=== PATIENT | male | born 1930 | race Caucasian/White ===

== ENCOUNTER 2017-12-21 11:52 | Inpatient (IN) | payer OTHER, MEDICARE ==
[~2017-12-21] VITALS: Ht 167.6 cm; Wt 72.6 kg
--- NOTE | 2017-12-21 11:53 | ED MVC/FALL/TRAUMA COMPLAINT ---
History of Present Illness General Chief Complaint: General Adult Stated Complaint: HIP PAIN Source: patient Exam Limitations: no limitations Allergies Coded Allergies: phenytoin (UNKNOWN 02/08/16) tetracycline (UNKNOWN 02/08/16) Triage Nurses Notes Reviewed? yes Onset: Abrupt Duration: constant Timing: single episode today Severity: severe Severity Numbers: 7 HPI: Patient is a 87-year-old male with a past medical history of anxiety, hypertension, iron deficiency anemia, PROSTATE CANCER, depression, right iliac artery aneurysm repair, left bimalleolar fracture with ORIF left acetabular fracture who presents emergency room seen at approximately 9 AM patient was walking outside of his residence he fell slipped on ice in his driveway EMS arrived on scene patient refused EMS transfer to emergency room however he states that he had significant inability to ambulate and weight-bear due to pain localized to left hip upper leg and left ankle. Patient states that bystanders helped patient to his residency and due to persistent pain EMS was called again to his residence for transfer to [facility] emergency room Patient denies any preceding episode of lightheaded sensation or dizziness denies any head strike neck pain back pain chest pain abdominal pain or upper extremity pain. Patient is unable to move left leg (Dionisio Oliva) Vital Signs & Intake/Output Vital Signs & Intake/Output Vital Signs Date Time Temp Pulse Resp B/P B/P Pulse O2 O2 Flow FiO2 Mean Ox Delivery Rate 12/21 1444 Room Air Room Air 12/21 1443 96.5 68 15 159/71 95 Room Air Room Air 12/21 1205 96.7 67 15 150/72 96 Room Air Room Air Reconcile Medications Clonazepam 0.5 MG TABLET 1 TAB PO BID ANXIETY (Reported) Ferrous Sulfate 325 MG (65 MG IRON) TABLET 1 TAB PO TID SUPPLEMENT (Reported) Folic Acid 1 MG TABLET 1 TAB PO DAILY SUPPLEMENT (Reported) Furosemide 20 MG TABLET 1 TAB PO BID DIURETIC (Reported) Mirtazapine 30 MG TABLET 1 TAB PO QPM UNKNOWN (Reported) Tamsulosin HCl 0.4 MG CAP.ER.24H 1 CAP PO DAILY (Reported) Ursodiol 300 MG CAPSULE 2 CAP PO BID UNKNOWN (Reported) (Waylon RICHTER,Vincent Garza) Past History Travel History Traveled to [place] past 21 day No Medical History Any Pertinent Medical History? see below for history Cardiovascular: hypertension Psychiatric: anxiety, depression Influenza Vaccine: 08/13/09 Surgical History Surgical History: non-contributory Psychosocial History Who do you live with Patient/Self Services at Home NONE What is your primary language Sinhala Family History Hx Contributory? No (Dionisio Oliva) Review of Systems Review of Systems Constitutional: Reports: no symptoms. Eyes: Reports: no symptoms. Ears, Nose, Throat, Mouth: Reports: no symptoms. Respiratory: Reports: no symptoms. Cardiovascular: Reports: no symptoms. Gastrointestinal/Abdominal: Reports: no symptoms. Genitourinary: Reports: no symptoms. Musculoskeletal: Reports: see HPI, joint pain, joint swelling. Skin: Reports: no symptoms. Neurological/Psychological: Reports: no symptoms. All Other Systems: Reviewed and Negative (Dionisio Oliva) Physical Exam Physical Exam General Appearance: mild distress Head: atraumatic Eyes: Bilateral: normal appearance. Ears, Nose, Throat, Mouth: hearing grossly normal, moist mucous membrane Neck: normal inspection, no midline tenderness Respiratory: no respiratory distress Cardiovascular: regular rate/rhythm Gastrointestinal: normal bowel sounds, soft, non-tender Neurologic/Psych: no motor/sensory deficits, awake, normal gait Skin: intact, normal color, warm/dry Comments: Left hip noted generalized point tenderness inability to straight leg raise Left femur lateral generalized point tenderness noted Left knee nontender Left ankle generalized point tenderness noted Left foot normal inspection nontender Left lower extremity dermatomes intact pedal pulse +2 capillary refill less than 2 seconds Core Measures ACS in differential dx? No CVA/TIA Diagnosis No Sepsis Present: No Sepsis Focused Exam Completed? No (Dionisio Oliva) Progress Differential Diagnosis: abd injury, C/T/L spine injury, ext injury, ICH, pelvis injury, pnemothorax, spinal cord injury Plan of Care: Orders Procedure Date/time Status Nothing by Mouth 12/21 D Active Pathway - chart 12/21 1520 Active House Staff 12/21 1520 Active Code Status 12/21 1520 Active Patient Data 12/21 1449 Active ED Holding Orders 12/21 1444 Active Admit to inpatient 12/21 1444 Active Vital Signs 12/21 1444 Active Code Status 12/21 1444 Complete Intake & Output 12/21 1317 Active PARTIAL THROMBOPLASTIN TIME 12/21 1155 Complete PROTHROMBIN TIME 12/21 1155 Complete COMPREHENSIVE METABOLIC PANEL 12/21 1155 Complete CREATINE PHOSPHOKINASE 12/21 1155 Complete CBC WITHOUT DIFFERENTIAL 12/21 1155 Complete EKG 12/21 1155 Active TYPE & SCREEN (NOT X-MATCH) 12/21 1155 Complete VTE Mechanical Prophylaxis 12/21 UNK Active Laboratory Tests 12/21/17 1313: Anion Gap 15, Estimated GFR 44 L, BUN/Creatinine Ratio 18.7, Glucose 103 H, Calcium 9.5, Total Bilirubin 0.7, AST 26, ALT 19 L, Alkaline Phosphatase 87, Creatine Kinase 180 H, Total Protein 8.5 H, Albumin 4.5, Globulin 4.0, Albumin /Globulin Ratio 1.1, PT 11.7, INR 1.12, APTT 30, CBC w Diff NO MAN DIFF REQ, RBC 4.46 L, MCV 88.9, MCH 29.0, MCHC 32.7 L, RDW 15.3 H, MPV 8.3, Gran % 88.0 H, Lymphocytes % 6.1 L, Monocytes % 5.6, Eosinophils % 0.1, Basophils % 0.2, Absolute Granulocytes 10.5 H, Absolute Lymphocytes 0.7 L, Absolute Monocytes 0.7 H, Absolute Eosinophils 0, Absolute Basophils 0 Patient understood examination has concerns of fracture to left lower extremity x-rays are obtained patient was given pain medications patient was neurovascularly intact left lower extremity denies any other locations of pain X-rays were resulted showing concerns of left intertrochanteric fracture reviewed x-rays results with family members and patient patient had improvement of his pain and declines pain medications again when offered Discussed patient with Dr. WARREN who will evaluate patient and possible perform surgical intervention however he needs cardiac clearance and medicine admission Dr. Connors discussed admission with hospitalist Diagnostic Imaging: Viewed by Me: Radiology Read. Radiology Impression: acute abnormality, fracture CXR Impression: no acute abnormality, no infiltrates Initial ED EKG: normal p-waves, normal QRS complex, normal sinus rhythm, 79 BPM, NSR Comments: PATIENT: CLARK MOONEY PRESENT AGE: 87 PATIENT ACCOUNT NO: [id number] : 31 LOCATION: [facility] ORDERING PHYSICIAN: Dionisio GIRON SERVICE DATE: 12/21/17-1199 EXAM TYPE: RAD - XRY-ANKLE 3 OR MORE VIEWS L; XRY-AP PELVIS; XRY-FEMUR, LEFT 2 VIEWS; XRY-HIP 2-3 VIEWS, LEFT; [id number], LEFT EXAMINATION: XR PELVIS XR LEFT HIP XR LEFT FEMUR XR LEFT TIBIA AND FIBULA XR LEFT ANKLE CLINICAL INFORMATION: Status post fall with left pelvic pain COMPARISON: CT abdomen and pelvis from 09/11/2015 TECHNIQUE: Single AP view of the pelvis 2 views of the left hip; lateral view of the hip is limited due to patient positioning 2 views of the left femur 2 views of the left tibia and fibula 3 views of the left ankle FINDINGS: Pelvis and left hip: There are severe degenerative changes of the left hip with marked joint space narrowing, [id number] contact of the femoral head and acetabulum, and subchondral sclerosis and cyst formation. There is cortical discontinuity and lucency projecting over the intertrochanteric region concerning for fracture. No evidence of dislocation. The right hip is unremarkable. The left acetabulum appears dysplastic. Healed left superior and inferior pubic rami fractures are better seen on the prior CT. The sacrum is partly obscured by overlying bowel contents. The bony pelvis otherwise appears intact. Degenerative disc disease at L5-S1. Right iliac vascular stent graft and internal iliac vascular occlusion device and prostate brachytherapy seeds are again seen. Left femur: Suspected intertrochanteric fracture as above. Remainder of the femur appears intact. Left tibia and fibula: No evidence of acute fracture. Degenerative changes noted at the knee. Left ankle: Postsurgical changes of internal fixation for bimalleolar fractures. Surgical hardware appears intact. No evidence of superimposed acute osseous abnormality. Alignment appears anatomic. IMPRESSION: Findings suspicious for intertrochanteric fracture of the left proximal femur, although evaluation is limited due to severe degenerative changes of the left hip. This could be confirmed with cross-sectional imaging as clinically indicated. The remainder of the bony pelvis, left femur, tibia and fibula, and ankle appears intact. Incidental findings as noted above. DICTATED BY: Fátima Martinez MD DATE/TIME DICTATED:12/21/171317 CLASSIFICATION OFFICER:VIJI PATIENT: CLARK MOONEY PRESENT AGE: 87 PATIENT ACCOUNT NO: [id number] : 31 LOCATION: [facility] ORDERING PHYSICIAN: Dionisio GIRON SERVICE DATE: 12/21/175013 EXAM TYPE: RAD - XRY-CHEST XRAY, TWO VIEWS EXAMINATION: CHEST CLINICAL INFORMATION: Fall. Suspect hip fracture. COMPARISON: Left rib films dated 07/25/2009. Chest x-ray dated 07/25/2009. TECHNIQUE: 2 frontal views of the chest were obtained. FINDINGS: The cardiomediastinal silhouette is within normal limits in size. Calcification and mild tortuosity of the aorta is seen. Low lung volumes are noted without focal pulmonary process. No consolidation, effusion or pneumothorax is seen. Osteopenia is present with old healed fracture deformities of the posterior right seventh and eighth ribs. Convex right thoracolumbar scoliosis and multilevel degenerative changes are noted in the lower thoracic and upper lumbar spine. IMPRESSION: Low lung volumes without focal pulmonary process seen. DICTATED BY: Akilah Smith MD DATE/TIME DICTATED:12/21/171313 CLASSIFICATION OFFICER:VIJI DATE/TIME TRANSCRIBED:12/21/171313 (Dionisio Oliva) Departure Departure Disposition: STILL A PATIENT Condition: Stable Clinical Impression Primary Impression: Intertrochanteric fracture of left femur Secondary Impressions: Fall, Left ankle pain Referrals: Bruno Arriaga MD (PCP/Family) Departure Forms: Customer Survey General Discharge Information (Dionisio Oliva) Admission Note Spoke With: Arabella Farfan MD Documentation of Exam: Documentation of any treatments & extenuating circumstances including Concerns Regarding Discharge (functional status, medication knowledge or non-compliance, living conditions, etc.) that warrant an admission rather than observation: [ Patient to be admitted to the hospital and will require surgical intervention once she is medically cleared. He will then need physical therapy and short- term rehabilitation.] PA/OFFICE RECEPTIONIST Co-Sign Statement Statement: ED Attending supervision documentation- [X] I saw and evaluated the patient. I have also reviewed all the pertinent lab results and diagnostic results. I agree with the findings and the plan of care as documented in the PA's/OFFICE RECEPTIONIST's documentation. [X]X I have reviewed the ED Record and agree with the PA's/OFFICE RECEPTIONIST's documentation. [] Additions or exceptions (if any) to the PAs/OFFICE RECEPTIONIST's note and plan are summarized below: [Patient slipped on the ice and fell landing on his left hip. Patient initially refused to go with EMS so with the help of bystanders made it back into his house but then he could not get around secondary to pain in the left hip so he came to the emergency department for evaluation. Patient denies hitting his head and there was no loss consciousness. Patient has an femoral neck fracture. Patient will require admission and will need surgical correction once medically cleared.] (Waylon RICHTER,Vincent Garza) Critical Care Note Critical Care Note Critical Care Time: 30-74 min (Audra GIRON,Dionisio)
--- NOTE | 2017-12-21 13:24 | RADIOLOGY REPORT ---
EXAMINATION: DR THAKUR CLINICAL INFORMATION: Fall. Suspect hip fracture. COMPARISON: Left rib films dated 07/25/2009. Chest x-ray dated 07/25/2009. TECHNIQUE: 2 frontal views of the chest were obtained. FINDINGS: The cardiomediastinal silhouette is within normal limits in size. Calcification and mild tortuosity of the aorta is seen. Low lung volumes are noted without focal pulmonary process. No consolidation, effusion or pneumothorax is seen. Osteopenia is present with old healed fracture deformities of the posterior right seventh and eighth ribs. Convex right thoracolumbar scoliosis and multilevel degenerative changes are noted in the lower thoracic and upper lumbar spine. IMPRESSION: Low lung volumes without focal pulmonary process seen.
[2017-12-21 13:30] LABS: PT 11.7 SEC (9.4-12.5); PTT 30 SEC (25-37)
[2017-12-21 13:34] LABS: ABSOLUTE BASOPHIL COUNT 0 /CUMM (0.0-0.2); ABSOLUTE EOSINOPHIL COUNT 0 /CUMM (0.0-0.7); ABSOLUTE GRANULOCYTE CT 10.5 /CUMM (1.4-6.5); ABSOLUTE LYMPH COUNT 0.7 /CUMM (1.2-3.4); ABSOLUTE MONOCYTE COUNT 0.7 /CUMM (0.10-0.60); BASOPHIL % 0.2 % (0.0-2.0); EOSINOPHIL % 0.1 % (0-5); HEMATOCRIT 39.6 % (42-52); MEAN CORPUSCULAR HGB CONC 32.7 G/DL (33.0-37.0); MEAN CORPUSCULAR VOLUME 88.9 FL (80.0-94.0); MEAN PLATELET VOLUME 8.3 FL (7.4-10.4); PLATELET COUNT 231 /CUMM (130-400); RBC DISTRIBUTION WIDTH 15.3 % (11.5-14.5); RED BLOOD CELL CT 4.46 /CUMM (4.70-6.10)
--- NOTE | 2017-12-21 13:44 | RADIOLOGY REPORT ---
EXAMINATION: XR PELVIS XR LEFT HIP XR LEFT FEMUR XR LEFT TIBIA AND FIBULA XR LEFT ANKLE CLINICAL INFORMATION: Status post fall with left pelvic pain COMPARISON: CT abdomen and pelvis from 09/11/2015 TECHNIQUE: Single AP view of the pelvis 2 views of the left hip; lateral view of the hip is limited due to patient positioning 2 views of the left femur 2 views of the left tibia and fibula 3 views of the left ankle FINDINGS: Pelvis and left hip: There are severe degenerative changes of the left hip with marked joint space narrowing, [id number] contact of the femoral head and acetabulum, and subchondral sclerosis and cyst formation. There is cortical discontinuity and lucency projecting over the intertrochanteric region concerning for fracture. No evidence of dislocation. The right hip is unremarkable. The left acetabulum appears dysplastic. Healed left superior and inferior pubic rami fractures are better seen on the prior CT. The sacrum is partly obscured by overlying bowel contents. The bony pelvis otherwise appears intact. Degenerative disc disease at L5-S1. Right iliac vascular stent graft and internal iliac vascular occlusion device and prostate brachytherapy seeds are again seen. Left femur: Suspected intertrochanteric fracture as above. Remainder of the femur appears intact. Left tibia and fibula: No evidence of acute fracture. Degenerative changes noted at the knee. Left ankle: Postsurgical changes of internal fixation for bimalleolar fractures. Surgical hardware appears intact. No evidence of superimposed acute osseous abnormality. Alignment appears anatomic. IMPRESSION: Findings suspicious for intertrochanteric fracture of the left proximal femur, although evaluation is limited due to severe degenerative changes of the left hip. This could be confirmed with cross-sectional imaging as clinically indicated. The remainder of the bony pelvis, left femur, tibia and fibula, and ankle appears intact. Incidental findings as noted above.
--- NOTE | 2017-12-21 15:15 | Cons- Orthopedic ---
General Information and HPI Consulting Request Date of Consult: 12/21/17 Requested By: ED attending Reason for Consult: left hip fracture SP fall on ice Source of Information: patient Exam Limitations: no limitations History of Present Illness: pt states that he went to take his trash out this morning around 9am when he fell on his left side. fell mainly on his left hip but also hit his elbow. Denies hitting his head or LOC. pt was unable to get up and an ambulance was called [facility] Allergies/Medications Allergies: Coded Allergies: phenytoin (UNKNOWN 02/08/16) tetracycline (UNKNOWN 02/08/16) Current Medications: Current Medications Sig/Jocelyn Start time Last Medication Dose Route Stop Time Status Admin Morphine Sulfate 0 .STK-MED ONE 12/21 1221 DC .ROUTE Morphine Sulfate 4 MG ONCE ONE 12/21 1200 DC 12/21 IV 12/21 1201 1317 Past History Medical History Cardiovascular: hypertension Musculoskeletal: L COMPRESSION HIP FRX L LEG FRX Psychiatric: anxiety, depression Cancer(s): bladder cancer Surgical History Pertinent Surgical History: non-contributory Psychosocial History Who Do You Live With? spouse, child Services at Home: NONE ETOH Use: denies use Illicit Drug Use: denies illicit drug use Functional Ability Ambulation: independent (ambulating prior to fall today) Review of Systems Review of Systems: as per HPI denies fevers, CP/SOB, GUAMAN has been having some mild left ear pain that he has been self-treating with hydrogen peroxide drops Exam & Diagnostic Data Vital Signs and I&O Vital Signs Date Time Temp Pulse Resp B/P B/P Pulse O2 O2 Flow FiO2 Mean Ox Delivery Rate 12/21 1444 Room Air Room Air 12/21 1443 96.5 68 15 159/71 95 Room Air Room Air 12/21 1205 96.7 67 15 150/72 96 Room Air Room Air Intake & Output 12/21 1600 12/21 0800 12/21 0000 12/20 1600 12/20 0800 12/20 0000 Intake Total 0 Output Total Balance 0 Intake, Oral 0 Patient 165 lb Weight Weight Reported by Patient Measurement Method Physical Exam: gen-NAD heent- EOMI, MMM, nares patent resp-clear cardio-RRR abd- ND, +BS, soft, NT ext- left hip tender to palpation, left leg shortened. 2+ PT pulses bilaterally. distal sensation intact small abrasion and ecchymosis over left elbow Last 24 Hours of Labs: Laboratory Tests 12/21 1313 Chemistry Sodium (137 - 145 mmol/L) 144 Potassium (3.5 - 5.1 mmol/L) 4.2 Chloride (98 - 107 mmol/L) 101 Carbon Dioxide (22 - 30 mmol/L) 27 Anion Gap (5 - 16) 15 BUN (9 - 20 mg/dL) 28 H Creatinine (0.7 - 1.2 mg/dL) 1.5 H Estimated GFR (>60 ml/min) 44 L BUN/Creatinine Ratio (7 - 25 %) 18.7 Glucose (65 - 99 mg/dL) 103 H Calcium (8.4 - 10.2 mg/dL) 9.5 Total Bilirubin (0.2 - 1.3 mg/dL) 0.7 AST (17 - 59 U/L) 26 ALT (21 - 72 U/L) 19 L Alkaline Phosphatase (< 127 U/L) 87 Creatine Kinase (55 - 170 U/L) 180 H Total Protein (6.3 - 8.2 g/dL) 8.5 H Albumin (3.5 - 5.0 g/dL) 4.5 Globulin (1.9 - 4.2 gm/dL) 4.0 Albumin/Globulin Ratio (1.1 - 2.2 %) 1.1 Coagulation PT (9.4 - 12.5 SEC) 11.7 INR (0.90 - 1.17) 1.12 APTT (25 - 37 SEC) 30 Hematology CBC w Diff NO MAN DIFF REQ WBC (4.8 - 10.8 /CUMM) 12.0 H RBC (4.70 - 6.10 /CUMM) 4.46 L Hgb (14.0 - 18.0 G/DL) 12.9 L Hct (42 - 52 %) 39.6 L MCV (80.0 - 94.0 FL) 88.9 MCH (27.0 - 31.0 PG) 29.0 MCHC (33.0 - 37.0 G/DL) 32.7 L RDW (11.5 - 14.5 %) 15.3 H Plt Count (130 - 400 /CUMM) 231 MPV (7.4 - 10.4 FL) 8.3 Gran % (42.2 - 75.2 %) 88.0 H Lymphocytes % (20.5 - 51.1 %) 6.1 L Monocytes % (1.7 - 9.3 %) 5.6 Eosinophils % (0 - 5 %) 0.1 Basophils % (0.0 - 2.0 %) 0.2 Absolute Granulocytes (1.4 - 6.5 /CUMM) 10.5 H Absolute Lymphocytes (1.2 - 3.4 /CUMM) 0.7 L Absolute Monocytes (0.10 - 0.60 /CUMM) 0.7 H Absolute Eosinophils (0.0 - 0.7 /CUMM) 0 Absolute Basophils (0.0 - 0.2 /CUMM) 0 Imaging Results: left hip x-ray: Findings suspicious for intertrochanteric fracture of the left proximal femur, although evaluation is limited due to severe degenerative changes of the left hip. Assessment/Plan Assessment/Plan 87yo M with Left intertroch fracture after fall on ice this AM. Stable Admit to medicine PLan for Dr. Monet to take him to OR tonight NPO IVF pain management bedrest Consult Acknowledgment - Thank you for your consult request.
[2017-12-21] MEDS ORDERED: MIRTAZAPINE30 M2 PO (15:24)
[2017-12-21] MEDS ORDERED: FUROSEMIDE20 M1 PO (15:25)
[2017-12-21] MEDS ORDERED: TAMSULOSIN HCL0.4 M1 PO (15:25)
[2017-12-21] MEDS ORDERED: CLONAZEPAM0.5 M2 PO (15:25)
[2017-12-21] MEDS ORDERED: FERROUS SULFAT325 M3 PO (15:25)
[2017-12-21] MEDS ORDERED: URSODIOL300 M1 PO (15:25)
[2017-12-21] MEDS ORDERED: FOLIC ACID1 M1 PO (15:26)
[2017-12-21] MEDS ORDERED: FLUOXETINE HCL20 M2 PO (15:30)
[2017-12-21] MEDS ORDERED: LASIX20 M1 PO (15:30)
[2017-12-21 15:44] VITALS: BP 156/71
--- NOTE | 2017-12-21 16:10 | History & Physical ---
[facility] 12[facility]21/17 1540: General Information and HPI MD Statement: I have seen and personally examined CLARK MOONEY and documented this H&P. The patient is a 87 year old M who presented with a patient stated chief complaint of left hip pain after mechanical fall. []. Source of Information: patient, old records Exam Limitations: no limitations History of Present Illness: 87 YO M with PMH of HTN, prostate CA s/p external beam radiation plus radium implant (2003), bladder cancer status post transurethral resection (2014), choledocholithiasis status post ERCP with sphincterotomy with extraction (2014), anxiety, depression, right iliac artery aneurysm repair, left by Yady fracture s/p ORIF and iron deficiency anemia brought to ED with chief complaint of left hip pain after a mechanical fall. Patient reported that he was in his usual state of health this morning when he went outside to through the trash in garbage pain. He fell down and straight after slipped over ice in driveway. She reported that he landed on his left hip. He was not able to stand for 5 minutes. Later on the collector of internal revenue helped him to get back into the house. Later on he noticed that his pain has increased and he is not able to walk. His pain was 10/10, continuous, sharp, nonradiating and aggravated with movement. His family called the ambulance and patient was brought to ED. Patient also reported having bruise on the left elbow after the fall. Patient denied any chest pain, lightheadedness, dizziness, palpitation, loss of consciousness, hitting his head to floor, cough, fever, chills, abdominal pain and dysuria. She reported that he had a irregular rhythm his heart and he born with it. But patient denied seeing any signal fitter regularly. Patient reported the last time he [facility] the signal fitter at [facility] then he need clearance for surgery for his bladder cancer. Patient also reported that he is seeing [facility]rologist [facility] and last time he saw him couple of months ago. She reported that he was using cane for walking in routine. In his records last colonoscopy was done in 2009. ED course: Vitals: Temperature 96.7, pulse 67, respiratory rate 15, blood pressure 150/72, oxygen saturation 96% on room air. Labs: WBC count 12.0, hemoglobin 12.9, hematocrit 39.6, platelet count 231, sodium 144, potassium 4.2, BUN 28, creatinine 1.5, anion gap 15, BUNs/creatinine ratio 18.7, glucose 103, calcium 9.5, bilirubin 0.7, AST 26, ALT 19, creatinine kinase 180, total protein 8.5, albumin 4.5, globulin 4.0, PT 11.7, INR 1.12 Allergies/Medications Allergies: Coded Allergies: phenytoin (UNKNOWN 02/08/16) tetracycline (UNKNOWN 02/08/16) Home Med list Clonazepam 0.5 MG TABLET 1 TAB PO BID ANXIETY (Reported) Ferrous Sulfate 325 MG (65 MG IRON) TABLET 1 TAB PO TID SUPPLEMENT (Reported) Fluoxetine HCl 20 MG CAPSULE 60 CAP PO DAILY MENTAL HEALTH (Reported) Folic Acid 1 MG TABLET 1 TAB PO DAILY SUPPLEMENT (Reported) Furosemide 20 MG TABLET 1 TAB PO BID DIURETIC (Reported) Furosemide (Lasix) 20 MG TABLET 1 TAB PO BID DIURETIC (Reported) Mirtazapine 30 MG TABLET 1 TAB PO QPM UNKNOWN (Reported) Tamsulosin HCl 0.4 MG CAP.ER.24H 1 CAP PO QHS (Reported) Ursodiol 300 MG CAPSULE 2 CAP PO BID UNKNOWN (Reported) Past History Travel History Traveled to [place] past 21 day No Medical History Cardiovascular: hypertension Musculoskeletal: L COMPRESSION HIP FRX L LEG FRX Psychiatric: anxiety, depression Cancer(s): bladder cancer Influenza Vaccine: 08/13/09 Surgical History Surgical History: non-contributory Past Family/Social History Psychosocial History Who Do You Live With? spouse, child Services at Home: NONE ETOH Use: denies use Illicit Drug Use: denies illicit drug use Functional Ability Ambulation: independent (ambulating prior to fall today) Review of Systems Review of Systems Constitutional: Reports: no symptoms. EENTM: Reports: no symptoms. Cardiovascular: Reports: no symptoms. Respiratory: Reports: no symptoms. GI: Reports: no symptoms. Genitourinary: Reports: no symptoms. Musculoskeletal: Reports: see HPI. Neurological/Psychological: Reports: no symptoms. Exam & Diagnostic Data Last 24 Hrs of Vital Signs/I&O Vital Signs Date Time Temp Pulse Resp B/P B/P Pulse O2 O2 Flow FiO2 Mean Ox Delivery Rate 12/21 1444 Room Air Room Air 12/21 1443 96.5 68 15 159/71 95 Room Air Room Air 12/21 1205 96.7 67 15 150/72 96 Room Air Room Air Intake & Output 12/21 1600 12/21 0800 02 0000 Intake Total 0 Output Total Balance 0 Intake, Oral 0 Patient 165 lb Weight Weight Reported by Patient Measurement Method Physical Exam General Appearance Alert, Oriented X3, Cooperative Skin Temp/Moisture Exam: Warm/Dry Sepsis Skin Exam (color): Normal for Ethnicity HEENT Atraumatic, PERRLA, EOMI Neck Supple Cardiovascular Normal S1, Normal S2 Lungs Clear to Auscultation Abdomen Soft, No Tenderness Neurological Normal Speech, Normal Tone Extremities B/L chronic venous statis with scally skin., Shortness of left leg compare to right. Last 24 Hrs of Labs/Judson: Laboratory Tests 12/21/17 1313: Anion Gap 15, Estimated GFR 44 L, BUN/Creatinine Ratio 18.7, Glucose 103 H, Calcium 9.5, Total Bilirubin 0.7, AST 26, ALT 19 L, Alkaline Phosphatase 87, Creatine Kinase 180 H, Total Protein 8.5 H, Albumin 4.5, Globulin 4.0, Albumin /Globulin Ratio 1.1, PT 11.7, INR 1.12, APTT 30, CBC w Diff NO MAN DIFF REQ, RBC 4.46 L, MCV 88.9, MCH 29.0, MCHC 32.7 L, RDW 15.3 H, MPV 8.3, Gran % 88.0 H, Lymphocytes % 6.1 L, Monocytes % 5.6, Eosinophils % 0.1, Basophils % 0.2, Absolute Granulocytes 10.5 H, Absolute Lymphocytes 0.7 L, Absolute Monocytes 0.7 H, Absolute Eosinophils 0, Absolute Basophils 0 Assessment/Plan Assessment: 87 YO M with PMH of HTN, prostate CA s/p external beam radiation plus radium implant (2003), bladder cancer status post transurethral resection (2014), choledocholithiasis status post ERCP with sphincterotomy with extraction (2014), anxiety, depression, right iliac artery aneurysm repair, left by Yady fracture s/p ORIF and iron deficiency anemia brought to ED with chief complaint of left hip pain after a mechanical fall. We will admit the patient on general medicine floor for the treatment of left hip fracture. Left hip fracture: -Pain management according to pain pathway. -Nothing by mouth -Gentle IV fluid -Orthopedic recommendations. Acute kidney injury: -Last creatinine was in AUG 2017 that was 1.4. -patient on presentation has 1.5 creatinine level. -Hold the lisinopril considering abnormal renal function. -Continue ursodiol History of hypertension: -We will hold lisinopril. -We will hold his Lasix to prevent perioperative hypotension. History of anxiety and depression: -We will continue his home medications. History of difficulty in urination: -We will continue Flomax DVT prophylaxis: Mechanical and subcutaneous heparin. CODE STATUS: Full code. As Ranked By This Provider Problem List: 1. Intertrochanteric fracture of left femur Core Measures/Misc (07/30) Acute Coronary Syndrome ACS Diagnosis: No Congestive Heart Failure Congestive Heart Failure Diagnosis No Cerebrovascular Accident CVA/TIA Diagnosis: No VTE (View Protocol) VTE Risk Factors Age>40 No Mechanical VTE Prophylaxis d/t N/A MechProphylax Ordered No VTE Pharm Prophylaxis d/t NA PharmProphylax ordered Sepsis (View protocol) Sepsis Present: No Derek RICHTER,[facility] 12/21/17 1703: Resident Review Statement Resident Statement: examined this patient, discussed with leadership intern, agreed with leadership intern Other Findings: This is 87-year-old male with extensive PMH who presented to the ED with left hip pain after mechanical fall. The patient was taking out the garbage when he slipped over eyes and landed on his left side. The ED confirmed left-sided intratrochanteric femur fracture. Surgery recommended surgical intervention, they discuss it with patient who agreed on surgery. The patient denies any palpitation, dizziness, chest pain, or vertigo prior to the fall. He denies loss of consciousness, tongue biting, or head trauma. The patient has no history of CAD, CHF, or DC. He never smoked, does not drink alcohol, and denies illicit drug use. He has no asthma or COPD or any other pulmonary conditions. Patient has a PMH of hypertension, chronic lower extremity swelling most likely secondary to venous insufficiency, prostatic cancer status post transurethral resection, and anxiety, depression, right iliac artery aneurysm repair. 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 Assessment: The patient presented with a mechanical fall that led to left intratrochanteric femoral neck fracture that requires surgery intervention. Patient can walk 1 block without chest pain or shortness breath. Even though he has lower extremity edema, his x-ray and BNP make CHF less likely. He has no history of CAD or ACS in the past. Revised cardiac risk index was calculated as 0.4% risk of major cardiac events. Creatinine was found to be 1.5 we didn't know if this is his new baseline. From medical point of view the patient is low risk for surgery, however we will ask for cardiac consult given that the patient reported irregular heart rhythm and his EKG shows QRS >150. Plan * Admit to general medicine floor * Keep nothing by mouth * PT/PTT/blood cross and type * We will hold Lasix, given the renal function and to avoid hypotension. * add Ca, Mg, and fabricio to labs * We will manage pain as necessary * DVT prophylaxis with subcutaneous heparin for now, postoperative DVT prophylaxis as per surgery * We will continue home medication including tamsulosin, folic acid, Ursodiol and fluoxetine * Nothing by mouth for now, heart healthy post surgery. * Full code Venu Groves MD 12/22/17 1327: Attending MD Review Statement Attending Statement Attending MD Statement: examined this patient, discuss w/resident/PA/VULNERABILITY ASSESSMENT ANALYST, agreed w/resident/PA/VULNERABILITY ASSESSMENT ANALYST, reviewed EMR data (avail) Attending Assessment/Plan: Patient is asymtomatic aside from hip pain. He is active with low cardiac risk for surgery, low pulmonary risk. Plan is cardiology consult, medically optimized for surgery at this time, continue home medications post-operatively. See resident note for full details.
--- NOTE | 2017-12-21 16:49 | Cons- Cardiology ---
General Information and HPI Consulting Request Date of Consult: 12/21/17 Requested By: Venu Groves MD History of Present Illness: Mr. Vaz is an 87 year old male with history of hypertension and reported history of cardiac dysrhythmia who presents to [facility] after a fall. He was found to have a left sided intertrochanteric fracture of the femur that occurred after he slipped on the ice. At baseline, this patient only walks slowly due to his concern for falling. At this level of activity he denies chest pain, pressure, tightness, shortness of breath, lightheadedness or palpitations. This patient has had multiple surgeries including a surgery for his bladder cancer. Allergies/Medications Allergies: Coded Allergies: phenytoin (UNKNOWN 02/08/16) tetracycline (UNKNOWN 02/08/16) Home Med List: Clonazepam 0.5 MG TABLET 1 TAB PO BID ANXIETY (Reported) Ferrous Sulfate 325 MG (65 MG IRON) TABLET 1 TAB PO TID SUPPLEMENT (Reported) Fluoxetine HCl 20 MG CAPSULE 60 CAP PO DAILY MENTAL HEALTH (Reported) Folic Acid 1 MG TABLET 1 TAB PO DAILY SUPPLEMENT (Reported) Furosemide 20 MG TABLET 1 TAB PO BID DIURETIC (Reported) Furosemide (Lasix) 20 MG TABLET 1 TAB PO BID DIURETIC (Reported) Mirtazapine 30 MG TABLET 1 TAB PO QPM UNKNOWN (Reported) Tamsulosin HCl 0.4 MG CAP.ER.24H 1 CAP PO QHS (Reported) Ursodiol 300 MG CAPSULE 2 CAP PO BID UNKNOWN (Reported) Review of Systems Review of Systems: A review of systems is unremarkable. Past History Travel History Traveled to [place] past 21 day No Medical History Cardiovascular: hypertension Musculoskeletal: L COMPRESSION HIP FRX L LEG FRX Psychiatric: anxiety, depression Cancer(s): bladder cancer Surgical History Surgical History: non-contributory Psychosocial History Who Do You Live With? spouse, child Services at Home: NONE ETOH Use: denies use Illicit Drug Use: denies illicit drug use Functional Ability Ambulation: independent (ambulating prior to fall today) Exam & Diagnostic Data Vital Signs and I&O Vital Signs Date Time Temp Pulse Resp B/P B/P Pulse O2 O2 Flow FiO2 Mean Ox Delivery Rate 12/21 1544 97.2 66 15 156/71 96 Room Air 12/21 1543 97.2 66 15 156/71 96 Room Air 12/21 1444 Room Air Room Air 12/21 1443 96.5 68 15 159/71 95 Room Air Room Air 12/21 1205 96.7 67 15 150/72 96 Room Air Room Air Intake & Output 12/21 1600 12/21 0000 12/20 1600 12/20 0812/20 0000 Intake Total 0 Output Total Balance 0 Intake, Oral 0 Patient 165 lb Weight Weight Reported by Patient Measurement Method Physical Exam: General: WD/WN male in NAD; alert and oriented x 3 HEENT: NC/AT; PERRL, EOMI Neck: no JVD, no carotid bruit Heart: RRR w/o murmur Lungs: clear bilaterally Abdomen: soft, NT, +ve bowel sounds Extremities: no edema Diagnostic Data 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 He is in a sinus rhythm with no evidence of ischemia or decompensated CHF and has had multiple surgeries without event. 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 This patient is at a reasonable risk for surgery. Hold Lasix since the patient is likely a little dry. Consult Acknowledgment - Thank you for your consult request.
[2017-12-21 21:18] VITALS: BP 124/50
--- NOTE | 2017-12-21 22:14 | RADIOLOGY REPORT ---
EXAMINATION: XR HIP, LEFT CLINICAL INFORMATION: Left hip gamma nail COMPARISON: Radiographs of the hip from 12/21/2017 TECHNIQUE: Intraoperative C-arm fluoroscopic imaging of left hip was utilized at the time of femoral fracture fixation. Number of saved images: 9 Fluoroscopy time: 2 minutes, 19 seconds. Dose: 2.14 rad. FINDINGS: Fluoroscopic imaging performed at time of open reduction and internal fixation of the trochanter fracture with placement of intramedullary nail which is stabilized by a distal interlocking screw. The dynamic femoral neck screw is in satisfactory position. 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 IMPRESSION: Intraoperative fluoroscopic imaging of left hip was utilized at the time of open reduction and internal fixation of the intertrochanteric fracture.
--- NOTE | 2017-12-21 22:15 | Operative Report ---
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 3) Left Hip Severe Degenerative Osteoarthritis 4) 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 5) 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 6) Left Hip Post-Traumatic Acetabular Protrusio Post-Operative Diagnosis: 1) Left Hip Proximal Femoral Intertrochanteric Fracture Potential Early Postoperative (Post-Fixation And [id number]) Microinstability Requiring Acute Postoperative Weight Bearing, Motion And Activity Limitation In Supervised And Function-Assisted Hospital Followed By Rehabilitation Environment For Optimized Symptom Control, Minimized Fall Risk, Minimized Risk Of Fixation And Fracture Displacement, Optimized Fracture Healing, [facility] Of Function And Ambulation As Well As For Medical And Post-Trauma Monitoring And Optimized Overall Outcome 2) Expected Acute Postoperative Left Hip And Thigh Region Pain Requiring Potentially Sedating Postoperative Intravenous Narcotic Analgesic Pain Medication And Inpatient Nursing Observation Following Standard And Uncomplicated Proximal Femoral Intertrochanteric Fracture Internal Fixation 3) Expected Acute Postoperative Left Hip And Thigh Region Muscular Spasm Requiring Potentially Sedating Postoperative Muscle Relaxant Medication And Inpatient Nursing Observation Following Standard And Uncomplicated Procedure Detailed Above 4) Left Hip Acute Proximal Femoral Intertrochanteric Fracture Internal Fixation Postprocedural Status 5) Presence Of Left Hip Proximal Femoral Intertrochanteric Fracture Internal Fixation Short Cephalomedullary Nail, Femoral Head-Neck Lag Screw And DIstal Interlocking Screw Implant Construct Estimated Blood Loss: less than 50ml Surgeon/Maintenance Groundskeeper: CHUCK MEDRANO MD - Primary Consulting Orthopaedic Surgeon Surgical Providers: Chuck Medrano M.D. - Orthopaedic Surgeon Anesthesia: general endotracheal tube Monitors: Standard general anesthesia and other perioperative monitoring was performed per anesthesia. Refer to anesthesia records for details. IV Fluids: Standard anesthesia perioperative fluid management was performed without requirement for additional or emergent fluid resuscitation. Refer to anesthesia records for details. Implants: Implants Placed: Left Hip And Proximal Femur Region Implants: [facility] Gamma 3 Cephalomedullary Titanium Alloy Fracture Fixation System: Gamma 3 System Short Cephalomedullary Nail 11 mm diameter x 180 mm length x 125 degree cephalomedullary screw-tessy angle Gamma 3 System 10.5 mm x 85 mm Lag Screw Gamma 3 System 5.0 mm x 40.0 mm Fully Threaded Distal Nail Distal Transfixion Hole Locking Screw Graft Placed: None Urine Output: Refer to anesthesia records for details. Drains: None Specimens: None Complications: None Operative/Procedure Note Note: Preoperative Holding Area Assessment/Preparation: The patient was evaluated in the preoperative holding area prior to surgery and no clinical changes or contraindications to surgical intervention were documented compared to the preoperative deficits documented on medical admission , orthopaedic consultation and clearance musculoskeletal evaluations related to his hip intertrochanteric fracture. His left hip and to a lesser but still iimited degree the rest of his left lower extremity range of motion and other neuromusculoskeletal assessments were obviously limited due to pain, instability and potential displacement of his fracture. The surgical plan and site were confirmed with the patient and preoperative paperwork was finalized. The region of the intended surgical site was cleansed, prepped and marked per protocol. The primary surgeon, anesthesia care team members, and operating room staff confirmed the patient identity, surgical procedure, and operative site as well as other clinical details with the patient in an initial documented preoperative confirmation (awake time out) prior to the administration of sedation or anesthesia. Surgical Procedure: The procedure was performed by Dr. Medrano who was present and served as the primary surgeon for all critical intraoperative and perioperative decisions and interventions. Set-Up/Positioning/Exposure - The patient was brought to the operating room in stable condition and underwent uncomplicated induction of general anesthesia followed by placement of laryngeal mask airway (LMA) as well as all appropriate monitors, lines, tubes and catheters without difficulty. Prophylactic antibiotic (Ancef 2 grams IV based on patient body mass) was administered per orthopaedic surgical open internal fixation fracture care operative protocols and was completed at least 30 and less than 60 minutes prior to making an incision. The patient was positioned supine on the operating traction table in standard fashion for a left intertrochanteric hip fracture closed reduction under fluoroscopy and minimally invasive fluoroscopically-guided open cephalomedullary nail internal fixation taking care to protect and stabilize the hip and lower extremity during transfer , abduct the right arm on a well padded arm board and adduct the left arm over the torso on a pillow so as to avoid positions of nerve stretch with all pressure points fully padded or suspended between pads without any direct contact at all. The perineal post was place per traction table design. Bilateral lower extremity pulses and capillary refill were confirmed to be normal and symmetrical prior to final positioning and application of traction. The foot of the operative leg was well padded and secured in the traction boot with gentle initial traction applied sufficent to suspend the leg without the need for support once the foot portion of the table was removed. The opposite leg was flexed, abducted and externally rotated on a "nonoperative leg positioner" with sufficient clearance to allow for fluoroscopic imaging of the operative hip region. Nonoperative leg pulses and bilateral distal lower extremity capillary refill were again checked and confirmed to be unchanged from previous findings. Optimal alignment was achieved with standard positioning, gentle traction and slight internal rotation and was documented on preincision intraoperative AP, lateral and oblique fluoroscopic spot views. No adverse, nonanatomic or other change in fracture alignment, fracture fragment position or orientation was noted compared to preoperative images. The surgeon, anesthesia care team, and operating room staff again documented the patient identity, surgical procedure, and operative site as well as other clinical details in a final documented confirmation (final time out) prior to beginning the procedure. Exposure - Sterile prep and drape were performed using standard technique with DuraPrep and an Ioban antimicrobial incise curtain drape. Reference lines for the fracture, the tip of the greater trochanter, the femoral neck and shaft as well as the lag screw entry point at the lateral flare of the proximal femur were drawn with a marking pen along a radiopaque marker placed on the skin and projected over these structures on AP, lateral and oblique fluoroscopic views. The extent of the primary proximal incision was then marked and this linear incision was made longitudinally extending proximally from the tip of the greater trochanter for approximately 4 cm using a #10 scalpel blade. Hemostasis was achieved using Bovie electrocautery beginning with the skin edges of the incision and continuing throughout the procedure where necessary with settings appropriate to each progressive level. The dissection was carried down through the subcutaneous layer and the fascia was divided longitudinally in line with and throughout the length of the cutaneous incision using Metzenbaum scissors in a blunt spreading dissection technique. Further subfascial Metzenbaum blunt dissection was carried down to the superior cortical margin of the tip of the greater trochanter. Each successive layer was dissected slightly more distal than the one superficial to it taking an overall inferomedial approach to match the intended intramedullary guidewire and nail trajectory along the angle of the femoral shaft. A cannulated awl was advanced along this dissected path to the superior tip of the greater trochanter and confirmed to be at the optimal nail entry site just lateral to the most superior prominence of the greater trochanter on AP fluoroscopic view and just posterior to the greater trochanteric midpoint on the lateral view. Once the optimal entry point was confirmed, the awl was advanced through the cortex at that point and into the intertrochanteric region using a gentle rotating motion taking care to avoid cortical fracture extending from the circular entry site, maintain optimal trajectory parallel to the intramedullary canal and avoid contact with or penetration beyond the medial femoral cortex either in the intact intertrochanteric region or at the fracture site. Minimally Invasive Open Cephalomedullary Nail Internal Fixation - Under fluoroscopic guidance on orthogonal C-arm views, a guidewire was advanced through the cannulated awl, past the intertrochanteric segment, across the fracture site and down the femoral intramedullary canal to the level of the proximal femoral metadiaphyseal junction taking care not to exit through the fracture site or to penetrate the intact femoral cortical wall. A soft tissue protector was placed through the dissected layers down to the intended greater trochanteric cortical entry point so as to prevent muscular injury during drilling of the entry site or placement of the guide-wire and nail. With the guidewire in optimal position on multi-angle C-arm views and the fracture adequately reduced, a cannulated drill was used to fashion the proximal transtrochanteric opening for insertion of the nail per implant system design. A left-sided nail measuring 11 mm in diameter and 180 mm in length with a 125 degree cephalomedullary angle was selected and attached to the impaction apparatus. The lower than usual cephalomedullary angle was selected because of the patient's deformity related to chronic post-traumatic, avascular and degenerative changes with suggestion on preoperative and intraoperative radiologic studies that placement of the proximal fixation lag screw in the more dense and normal appearing inferomedial femoral head and neck bone (as opposed to the central and particularly the more superolateral partially avascular appearing bone) would be more stable and less likely to result in implant cut- out. The nail was advanced under fluoroscopic guidance to a depth and with proper rotation so as to optimize placement of the cephalic ("head-neck") screw in optimal position for proximal fixation (inferomedial head and neck) as noted above. During the final phase of nail implantation the lower extremity traction was partially released to allow narrowing of the fracture gap and partial compression across the fracture during final nail impaction. In this final position, the nail was confirmed to be of optimal length with the proximal end only slightly above the tip of the greater trochanter and the distal end in the upper diaphyseal region. The fracture was found to be stable, well aligned and reduced once the nail was fully impacted. Rigid attachment of the proximal fixation guidance arm was checked and the 125 degree guide hole was selected. Rotation of the nail was optimized on the oblique lateral fluoroscopic view matching the patient's normal reduced head- neck angle and the drill sleeve was advanced to the level of the skin and used to chuck the incision for proximal guidepin and screw placement. A small 5 mm lateral thigh incision was made at that point using a #10 scalpel blade. The dissection was carried down through the subcutaneous layer and the fascia was divided longitudinally throughout the length of the small incision using Metzenbaum scissors with a blunt spreading dissection technique. Further subfascial Metzenbaum blunt dissection was carried down to the lateral cortical surface of the femur. Each successive layer was dissected slightly more proximally than the one superficial to it taking an overall superomedial approach to match the intended guidepin and lag screw trajectory along the angle of the femoral neck. The drill sleeve was advanced through this dissected path down to the lateral femoral cortex at the flare of the proximal femur. The nail was impacted slightly to optimize the entry site for the proximal fixation screw into the inferomedial neck and head as described previously. A partially threaded guide pin was then advanced through the drill sleeve down to the lateral femoral cortex where the longitudinal level of the guide-pin and subsequent cannulated lag screw entry point was confirmed to be optimal for proximal fixation screw placement on AP fluoroscopic view. The pin was then advanced into the inferomedial portion of the femoral head using a drill while checking trajectory and length on orthogonal C-arm views to insure straight linear pin insertion without bending and placement several millimeters inferior to the central axis of the femoral neck and head for optimal proximal osseous fixation. C-arm views were also checked to insure that the depth of the guide-pin tip was approximately 5 mm below the chondral surface of the joint. The cannulated depth gauge was placed down to the drill sleeve and used to measure the appropriate lag screw length from the lateral femoral cortex per its subtraction measurement design. Prior to finalizing this measurement the cannula was checked on fluoroscopic AP view and confirmed to be as close to the lateral femoral cortex as possible. Appropriate measurement adjustment was made to account for the small gap seen between the drill sleeve and the femoral cortex. The cannulated step-cut cortical entry hole drill bit was used to drill the proximal path for the cannulated cephalad screw with orthogonal C-arm views monitoring the depth and trajectory of the drill bit and guide pin to insure maintenance of inferomedial path in the femoral neck and head, drill tip depth through the lateral femoral cortical surface to approximately 1 cm below the chondral surface without binding or advancement of the guide-pin toward the hip joint surface. Based on the previously described guidepin depth measurement, a 10.5 mm diameter x 85 mm length proximal fixation cannulated screw was selected and advanced over the guidepin, through the lateral femoral cortical opening created by the cannulated step-cut drill, through the opening in the nail per system design, and into the inferomedial femoral neck and head with very good overall insertional and final fixation torque (consistent with both pre- and intra- operative radiologic findings suggesting more dense bone in the inferomedial region for purchase of the implant). Optimal placement and final position were documented on multiaxial fluoroscopic views to insure that the proper depth was achieved with the end of the caphalad screw at approximately 1 cm below the chondral surface of the joint and with the inferolateral end of the screw projecting only minimally past the lateral femoral cortex of the femur for optimal circumferential fixation within the lateral femoral cortical drill hole while also providing optimal fracture lag effect. The screw alignment was confirmed to be optimal on both the AP and lateral views with trajectory parallel to and just below the central axis of the head and neck for optimal proximal fragment fixation. Care was taken to avoid any rotation of the head- neck fragment during proximal interfragmentary lag screw insertion. Fracture line and fracture fragment alignment, orientation and configuration were closely observed and confirmed to be optimal, unchanged and without fragment rotation, fracture line widening or joint surface penetration throughout the process of pin placement, drilling and final cephalad screw fixation. The proximal locking screw was placed using standard technique by placing the screw into the proximal end of the nail, tightening maximally, confirming interference fit preventing any further rotation of the cephalad screw and releasing the interference screw a quarter turn to allow orthogonal sliding compression across the fracture with weight bearing per system design. With proximal fixation achieved, attention was turned to the distal interlocking fixation. Lower extremity and fracture rotation were adjusted such that the fracture was optimally aligned while the rotation angle between the foot and the fluoroscopic axis of the femoral neck generally matched the normal version of the hip. Once near-anatomic rotation was achieved, traction was released and the leg gently longitudinally impacted so that the fracture was optimally compressed. The Gamma nail aiming arm rotation setting was adjusted for placement of the distal transfixion screw in the dynamic position and the modular drill sleeve for the distal drill and screw was advanced through the appropriate guide hole in the aiming arm to the level of the skin. The cutaneous point of contact of the sleeve was marked and a small 5 mm lateral thigh incision was made at that point using a #10 scalpel blade. The dissection was carried down through the subcutaneous layer and the fascia was divided longitudinally throughout the length of the small incision using Metzenbaum scissors with a blunt spreading longitudinal dissection technique in line with the fascial and muscle fibers. Further subfascial Metzenbaum blunt dissection was carried down to the lateral cortical surface of the femur with the path alignment orthogonal to the femur matching the intended transfixion screw trajectory. The drill sleeve was advanced through this dissected path down to the lateral femoral cortex at the upper diaphyseal level of the femur. The nail was again impacted slightly to compress the fracture. A drill was then advanced through the sleeve down to the lateral femoral cortex and a bicortical transfixion screw hole was fashioned orthogonal to and through the distal end ("dynamic position") of the oval distal nail fixation slot using standard technique. The drill sleeve was confirmed fluoroscopically to be directly contacting the lateral femoral cortex for optimal measurement accuracy and the screw length was measured from markings on the drill bit at the outermost level of the drill sleeve per system design. The drill bit was then removed and a 5 mm diameter x 40 mm length fully threaded transfixion screw was placed at the drilled site with excellent insertional and final fixation torque (consistent with solid bicortical capture). Final optimal position of all hardware, reduction of the fracture line and alignment of all fracture fragments was confirmed on multiaxial fluoroscopic images. Finally, the leg was rotated under fluoroscopic imaging to document stable fracture fixation and coplanar singular fracture fragment rotation without any displacement across the fracture line on dynamic radiographic evaluation and without screw penetration too close to the femoral articular surface on multiple angle projections. Final fluoroscopic images were saved and uploaded to the [facility] PACS system prior to closure. Closure/Recovery - The surgical sites were thoroughly irrigated and hemostasis was carefully achieved prior to closure. Initial counts were correct. The edges of the tensor and vastus lateralis fascia were reapproximated using simple #2-0 Vicryl sutures with a few interrupted sutures to close the fascial layer in the uppermost surgical site and single sutures at each of the lower screw placement surgical sites. The deep and superficial subcutaneous closure was achieved with #2-0 dyed and #3-0 undyed Vicryl respectively using an inverted, interrupted technique. The cutaneous layer was closed using melissa with the skin edges everted. A standard, sterile Xeroform, fluff 6x6 gauze and ABD pad dressing was placed with good surgical site coverage and was held in place with paper tape. All final counts were correct prior to removing the drapes. The foot section of the table was reattached and the patient's lower extremities were removed from the traction table attachments and returned to their neutral resting positions. The postoperative lower extremity alignment was more symmetrical than had been noted preoperatively. Bilateral pulses and capillary refill were confirmed to be normal and similar to preoperative status. The LMA was removed without difficulty and the patient was transferred to the hospital bed in the supine position taking care to support the pelvis, hips and lower extremities in the neutral position during transfer. Recovery Room Assessment: The patient was transported to the recovery room in stable condition where gross neurological examination showed no deficits on initial recovery from anesthesia. Gentle log roll of the operative leg was not associated with the same discomfort that he had reported preoperatively although there was still some expected moderate discomfort consistent with his recent injury, fracture and surgery. His postoperative pain was readily controlled with small doses of intravenous narcotic and other analgesic medication. He will follow the usual postoperative protocol for minimally invasive open reduction and short cephalomedullary nail internal fixation of moderately displaced but ultimately anatomically reduced and overall stable intertrochanteric hip fracture. This will include early mobilization, supervised transfers and ambulation with progressive protected (walker-assisted) weight-bearing as tolerated. Discharge planning can begin on postoperative day #1 or #2 in preparation for transfer to inpatient rehabilitation program as patient is an excellent short-term rehabilitation candidate by orthopaedic criterion. It should be noted however that there may be some limitations regarding his speed of recovery because of his preoperative baseline ambulatory and balance difficulty. Discharge Disposition: PACU CC: [facility] RICHTER,Chuck Guzman
--- NOTE | 2017-12-21 22:23 | PN- Orthopedic ---
Subjective Subjective: POSTOP CHECK Patient reports postop pain which is well controlled. Denies numbness or tingling. Reports a 2 day history of symptoms related to an left ear infection, which he has been self-treating with hydrogen peroxide. He reports itching and pus in the inside of his left ear. He offers no other complaints Objective Vital Signs and I&Os Vital Signs Date Time Temp Pulse Resp B/P B/P Pulse O2 O2 Flow FiO2 Mean Ox Delivery Rate 12/21 2117 97 Nasal 2.0L Cannula 12/21 2117 98.0 67 16 124/50 97 Nasal 2.0L Cannula 12/21 1544 97.2 66 15 156/71 96 Room Air 12/21 1543 97.2 66 15 156/71 96 Room Air 12/21 1444 Room Air Room Air 12/21 1443 96.5 68 15 159/71 95 Room Air Room Air 12/21 1205 96.7 67 15 150/72 96 Room Air Room Air Intake & Output 12/21 1600 12/21 0812/21 0000 12/20 1600 12/20 0000 Intake Total 0 Output Total Balance 0 Intake, Oral 0 Patient 165 lb Weight Weight Reported by Patient Measurement Method Physical Exam: Gen - resting comfortably in bed awake an alert in NAD HEENT - unable to assess inner ear w/o otoscope, no penny purulent drainage or eryhthema on inspection of external ear B/L Cardiac - S1S2 noted, RRR Lungs - CTAB Ext - Right hip dressing c/d/i, moves all extremities, motor an sensory intact, alps in place, no edema or calf tenderness B/L Current Medications: Current Medications Sig/Jocelyn Start time Last Medication Dose Route Stop Time Status Admin Acetaminophen 1,000 MG Q6 12/21 2359 UNVr IV 12/22 1801 Docusate Sodium 100 MG DAILY NEEDED PRN 12/21 2214 UNVr PO Fluoxetine HCl 1,200 MG DAILY 12/22 1000 CAN PO Fluoxetine HCl 20 MG DAILY 12/22 1000 AC PO Folic Acid 1 MG DAILY 12/22 1000 AC PO Hydromorphone HCl 2 MG Q4P PRN 12/21 2214 UNVr PO Hydromorphone HCl 4 MG Q4P PRN 12/21 2214 UNVr PO Morphine Sulfate 2 MG Q2P PRN 12/21 2214 AC IV Morphine Sulfate 0 .STK-MED ONE 12/21 1625 DC .ROUTE Morphine Sulfate 4 MG ONCE ONE 12/21 1545 DC 12/21 IV 12/21 1546 1644 Morphine Sulfate 0 .STK-MED ONE 12/21 1221 DC .ROUTE Morphine Sulfate 4 MG ONCE ONE 12/21 1200 DC 12/21 IV 12/21 1201 1317 Ondansetron HCl 4 MG Q6P PRN 12/21 2214 AC IV Polyethylene Glycol 17 GM DAILY NEEDED PRN 12/21 221 AC PO Tamsulosin HCl 0.4 MG DAILY 12/22 1000 AC PO Ursodiol 600 MG BID 12/21 2199 AC 12/21 PO 220 Results Last 48 Hours of Labs: Laboratory Tests 12/21 1313 Chemistry Sodium (137 - 145 mmol/L) 144 Potassium (3.5 - 5.1 mmol/L) 4.2 Chloride (98 - 107 mmol/L) 101 Carbon Dioxide (22 - 30 mmol/L) 27 Anion Gap (5 - 16) 15 BUN (9 - 20 mg/dL) 28 H Creatinine (0.7 - 1.2 mg/dL) 1.5 H Estimated GFR (>60 ml/min) 44 L BUN/Creatinine Ratio (7 - 25 %) 18.7 Glucose (65 - 99 mg/dL) 103 H Calcium (8.4 - 10.2 mg/dL) 9.5 Phosphorus (2.5 - 4.5 mg/dL) 2.8 Magnesium (1.6 - 2.3 mg/dL) 2.0 Total Bilirubin (0.2 - 1.3 mg/dL) 0.7 AST (17 - 59 U/L) 26 ALT (21 - 72 U/L) 19 L Alkaline Phosphatase (< 127 U/L) 87 Creatine Kinase (55 - 170 U/L) 180 H Ucg-R-Bbjifjyfsze Pept (<125 pg/mL) 705 H Total Protein (6.3 - 8.2 g/dL) 8.5 H Albumin (3.5 - 5.0 g/dL) 4.5 Globulin (1.9 - 4.2 gm/dL) 4.0 Albumin/Globulin Ratio (1.1 - 2.2 %) 1.1 Coagulation PT (9.4 - 12.5 SEC) 11.7 INR (0.90 - 1.17) 1.12 APTT (25 - 37 SEC) 30 Hematology CBC w Diff NO MAN DIFF REQ WBC (4.8 - 10.8 /CUMM) 12.0 H RBC (4.70 - 6.10 /CUMM) 4.46 L Hgb (14.0 - 18.0 G/DL) 12.9 L Hct (42 - 52 %) 39.6 L MCV (80.0 - 94.0 FL) 88.9 MCH (27.0 - 31.0 PG) 29.0 MCHC (33.0 - 37.0 G/DL) 32.7 L RDW (11.5 - 14.5 %) 15.3 H Plt Count (130 - 400 /CUMM) 231 MPV (7.4 - 10.4 FL) 8.3 Gran % (42.2 - 75.2 %) 88.0 H Lymphocytes % (20.5 - 51.1 %) 6.1 L Monocytes % (1.7 - 9.3 %) 5.6 Eosinophils % (0 - 5 %) 0.1 Basophils % (0.0 - 2.0 %) 0.2 Absolute Granulocytes (1.4 - 6.5 /CUMM) 10.5 H Absolute Lymphocytes (1.2 - 3.4 /CUMM) 0.7 L Absolute Monocytes (0.10 - 0.60 /CUMM) 0.7 H Absolute Eosinophils (0.0 - 0.7 /CUMM) 0 Absolute Basophils (0.0 - 0.2 /CUMM) 0 Assessment/Plan Assessment/Plan 87 M POD 0 s/p left ORIF w/ gamma nail secondary to left IT fx, pain controlled, awaiting PT eval in am. Reports a two day history of purititis and purulent material from his inner left ear Advance to reg diet, cont IVF PT eval in am, WBAT Ancef x2 postop Pain meds prn Bowel regimen prn DVT ppx - heparin sq 5000u q8 D/c kennedy in am Anticipate d/c to STR once medically stable Defer ? ear infection to primary team, Dr. Otero notified All other medical management per primary team D/w Dr. Medrano Core Measures Venous Thromboembolism VTE Risk Factors Age>40 No Mechanical VTE Prophylaxis d/t N/A MechProphylax Ordered No VTE Pharm Prophylaxis d/t NA PharmProphylax ordered
[2017-12-21 23:05] VITALS: BP 116/52
[2017-12-22] VITALS (7 sets, daily range): BP systolic 94–132; BP diastolic 60–80
--- NOTE | 2017-12-22 07:09 | PN- Housestaff ---
[place] 12/22/17 0709: Subjective Follow-up For: Left leg fracture status post ORIF Subjective: No overnight events. Patient remained afebrile overnight. Seen and examined this morning. He denied any chest pain, short of breath, nausea, vomiting, chills, fever, abdominal pain and dysuria. Patient was complaining of left hip pain 5/10. Pain is under control with pain medications. Patient also reported having left ear infection and pus is coming-out. Review of Systems Constitutional: Reports: no symptoms. EENTM: Reports: see HPI. Cardiovascular: Reports: no symptoms. Respiratory: Reports: no symptoms. Genitourinary: Reports: no symptoms. Musculoskeletal: Reports: see HPI. Neurological/Psychological: Reports: no symptoms. Objective Last 24 Hrs of Vital Signs/I&O Vital Signs Date Time Temp Pulse Resp B/P B/P Pulse O2 O2 Flow FiO2 Mean Ox Delivery Rate 12/22 0850 65 132/62 12/22 0827 97.7 60 20 112/80 98 Room Air 12/22 0300 97.5 59 20 94/62 98 Nasal 2.0L Cannula 12/22 0101 97.5 61 20 100/68 96 Nasal 2.0L Cannula 12/21 2305 98.2 63 20 116/52 97 Nasal Cannula 12/218 97 Nasal 2.0L Cannula 12/21 2117 98.0 67 16 124/50 97 Nasal 2.0L Cannula 12/21 1544 97.2 66 15 156/71 96 Room Air 12/21 1543 97.2 66 15 156/71 96 Room Air 12/21 1444 Room Air Room Air 12/21 1443 96.5 68 15 159/71 95 Room Air Room Air 12/21 1205 96.7 67 15 150/72 96 Room Air Room Air Intake & Output 12/22 1600 12/22 0800 12/22 0000 Intake Total 800 300 Output Total 300 Balance 500 300 Intake, IV 700 200 Intake, Oral 100 100 Output, Urine 300 Patient 160 lb Weight Weight Reported by Patient Measurement Method Physical Exam General Appearance: Alert, Oriented X3, Cooperative Skin Temp/Moisture Exam: Warm/Dry Sepsis Skin Exam (color): Normal for Ethnicity HEENT: Atraumatic, PERRLA, EOMI Neck: Supple Cardiovascular: Normal S1, Normal S2 Lungs: Clear to Auscultation Abdomen: Soft, No Tenderness Neurological: Normal Speech, Normal Tone Extremities: b/l chronic venous achanges Assessment/Plan Assessment: 87 YO M with PMH of HTN, prostate CA s/p external beam radiation plus radium implant (2003), bladder cancer status post transurethral resection (2014), choledocholithiasis status post ERCP with sphincterotomy with extraction (2014), anxiety, depression, right iliac artery aneurysm repair, left by Yady fracture s/p ORIF and iron deficiency anemia brought to ED with chief complaint of left hip pain after a mechanical fall. patient is being followed on general medicine floor for the treatment of left hip fracture. Left hip fracture s/p ORIF: -Post op day 1 -Pain management according to pain pathway. -Encourage patient take orally. -Orthopedic recommendations. -eliquis 2.5 bid tomorrow. Acute kidney injury: -Last creatinine was in AUG 2017 that was 1.4. -today Cr 1.1 -Hold the lisinopril considering abnormal renal function. -Continue ursodiol Left ear infection: -Possible otitis externa. -Antibiotic ear drops -Outpatient ENT folow up History of hypertension: -Hold lisinopril. -Hold his Lasix to prevent perioperative hypotension. History of anxiety and depression: -Continue his home medications. History of difficulty in urination: -Continue Flomax DVT prophylaxis: Mechanical and subcutaneous heparin. CODE STATUS: Full code. Problem List: 1. Intertrochanteric fracture of left femur Pain Ratin Pain Location: left hip Pain Goal: Pain 4 or less Pain Plan: pain pathway Tomorrow's Labs & Rationales: cbc/bep Venu Groves MD 12/22/17 1330: Attending MD Review Statement Attending Statement Attending MD Statement: examined this patient, discuss w/resident/PA/[employer], agreed w/resident/PA/[employer], reviewed EMR data (avail) Attending Assessment/Plan: 87M PMH HTN, prostate CA s/p external beam radiation plus radium implant (2003), bladder cancer status post transurethral resection with mechanical fall and left intertrochanteric hip fracture s/p repair on 12/21, doing well post-operatively with pain controlled. Also with left ear pain with discharge overnight, started on Ofloxacin drops. 1. Fall 2. Left closed intertrochanteric hip fracture 3. Left otitis externa Plan - Continue on general medicine - Continue home medications - Will start low dose Eliquis tomorrow for DVT PPx - Follow orthopedic recommendations - Continue Ofloxacin drops - Physical therapy
--- NOTE | 2017-12-22 07:41 | PN- Orthopedic ---
Subjective Subjective: No acute overnight events reported. Pain is reportedly controlled by pt with po meds. No complaints of chest pain, shortness of breath and difficulty breathing. No nausea or vomitting. Has yet to ambulate. Has kennedy catheter. c/o left ear discomfort, has been seen by Dr. Escalona who did otoscopic eval and is awaiting culture results, patient aware, denies worsening at present. Objective Vital Signs and I&Os Vital Signs Date Time Temp Pulse Resp B/P B/P Pulse O2 O2 Flow FiO2 Mean Ox Delivery Rate 12/22 0300 97.5 59 20 94/62 98 Nasal 2.0L Cannula 12/22 0101 97.5 61 20 100/68 96 Nasal 2.0L Cannula 12/21 2305 98.2 63 20 116/52 97 Nasal Cannula 12/21 2118 97 Nasal 2.0L Cannula 12/21 2117 98.0 67 16 124/50 97 Nasal 2.0L Cannula 12/21 1544 97.2 66 15 156/71 96 Room Air 12/21 1543 97.2 66 15 156/71 96 Room Air 12/21 1444 Room Air Room Air 12/21 1443 96.5 68 15 159/71 95 Room Air Room Air 12/21 1205 96.7 67 15 150/72 96 Room Air Room Air Intake & Output 12/22 0800 12/22 0000 12/21 1600 12/21 0800 12/21 0000 12/20 1600 Intake Total 800 300 0 Output Total 300 Balance 500 300 0 Intake, IV 700 200 Intake, Oral 100 100 0 Output, Urine 300 Patient 160 lb 165 lb Weight Weight Reported by Patient Reported by Patient Measurement Method Physical Exam: General: Alert and oriented x3, no acute distress Cardiac: RRR, no peripheral edema Pulm: CTA bilaterally, on nasal cannula o2, non labored respiratory effort Abdomen: No-tender, non-distended Extremities: Moves all extremities, distal sensation grossly intact. Skin warm and well perfused. DP pulses palpable. No shortening or malrotation of left lower extremity. Bilateral calves soft and non-tender. Surgical site: Left thigh, dressing dry and intact. Thigh compartment soft, non-tender. Assessment/Plan Assessment/Plan This is an 87 year old, pod 1, s/p ORIF left intertrochanteric fracture -OOB, WBAT -DC marcia from surgical standpoint, if medical requirement will defer to medical team for recommendations -Follow up medical recommendations for left ear otitis media vs externa -Hep sub Q for dvt ppx -Dressing change tomorrow by surgical team Will discuss with Dr. Medrano
[2017-12-22 09:28] LABS: ABSOLUTE BASOPHIL COUNT 0 /CUMM (0.0-0.2); ABSOLUTE EOSINOPHIL COUNT 0.1 /CUMM (0.0-0.7); ABSOLUTE GRANULOCYTE CT 2.7 /CUMM (1.4-6.5); ABSOLUTE LYMPH COUNT 1.4 /CUMM (1.2-3.4); ABSOLUTE MONOCYTE COUNT 0.7 /CUMM (0.10-0.60); BASOPHIL % 0.5 % (0.0-2.0); EOSINOPHIL % 2.4 % (0-5); GRANULOCYTE % 54.6 % (42.2-75.2); MEAN CORPUSCULAR HGB 29.2 PG (27.0-31.0); MEAN CORPUSCULAR HGB CONC 32.9 G/DL (33.0-37.0); MEAN CORPUSCULAR VOLUME 88.8 FL (80.0-94.0); MEAN PLATELET VOLUME 8.5 FL (7.4-10.4); PLATELET COUNT 185 /CUMM (130-400); RBC DISTRIBUTION WIDTH 15.4 % (11.5-14.5); RED BLOOD CELL CT 3.39 /CUMM (4.70-6.10)
[2017-12-22 10:09] LABS: HEMATOCRIT 30.1 % (42-52); WHITE BLOOD CELL COUNT 4.9 /CUMM (4.8-10.8)
--- NOTE | 2017-12-22 10:27 | PN- Student ---
Subjective Subjective: ID: The patient is an 87 year old white male with a history of hypertension, pedal edema, iron deficiency anemia, prostate cancer, bladder cancer, BPH, right iliac artery aneurysm repair, left malleolar fracture, left acetabular fracture, renal stones, anxiety, and heartburn. CC: left hip pain after slipping on ice Source: patient and chart HPI: Patient reports that he was putting out the trash this morning around 9 am when he slipped on ice and landed on his left hip. He attempted to break his fall with his left arm. He denies hitting his head or any loss of consciousness. He denies any dizziness, chest pain, or shortness of breath prior to the event. He has not had any headaches, fever, dysuria, abdominal pain or nausea and vomiting. It didnt hurt at first but he could not get up. He was on the ground for about 5 minutes before the garbage men came by and helped him into his house. He couldnt walk and then started to experience 10/10 pain in his hip and decided to call the ambulance. He did not note any bruising or discoloration on his hip. He states that the pain does not radiate and is worse with movement and when it is touched. He did not take any medications to relieve the pain. He cannot raise the leg now. He denies any other pain anywhere else. He uses a walker and a cane. 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 Denies smoking and alcohol use. PMH: He has past medical history of hypertension, anemia, pedal edema, prostate cancer, bladder cancer, BPH, right iliac artery aneurysm repair, left malleolar fracture, left acetabular fracture, urinary incontinence, renal stones, anxiety, heartburn, hernia repair, and a congenital irregular heart rhythm. Medications: See objective Allergies: See objective ROS: Constitutional- negative Eyes- negative ENT- negative Pulmonary- negative Cardiac- negative GI- negative - urinary incontinence Musculoskeletal- see HPI, ankle fracture Skin- edema in feet Neuro- negative Psychiatric- depression, anxiety Endocrine- negative Social History: He denies ever having smoked. He denies alcohol and illicit drug use. He is with 4 children. He is retired and lives with his . Objective Objective: Vital Signs Date Time Temp Pulse Resp B/P B/P Pulse O2 O2 Flow FiO2 Mean Ox Delivery Rate 02/09 1013 65 20 132/62 100 Room Air 12/22 0950 65 132/62 12/22 0927 97.7 60 20 112/80 98 Room Air 12/22 0300 97.5 59 20 94/62 98 Nasal 2.0L Cannula 12/22 0101 97.5 61 20 100/68 96 Nasal 2.0L Cannula 12/21 2305 98.2 63 20 116/52 97 Nasal Cannula 12/21 211 97 Nasal 2.0L Cannula 12/21 2117 98.0 67 16 124/50 97 Nasal 2.0L Cannula 12/21 1544 97.2 66 15 156/71 96 Room Air 12/21 1543 97.2 66 15 156/71 96 Room Air 12/21 1444 Room Air Room Air 12/21 1443 96.5 68 15 159/71 95 Room Air Room Air 12/21 1205 96.7 67 15 150/72 96 Room Air Room Air Physical Exam: General: frail appearing, alert and oriented, cooperative Neck: no lymphadenopathy, no thryomegaly, supple Lungs: clear to auscultation, non-labored breathing Cardiac: normal S1 and S2, no murmurs, rubs, or gallops Abdomen: soft, non-distended, no hepatosplenomegaly, no rebound or guarding, no CVA tenderness Extremities: point tenderness in left hip, can't move left thigh, ecchymoses over left elbow, left leg appears shorter than right leg Skin: 1+ bilateral pedal edema, dermatitis stasis bilaterally of lower extremities Results Results: Current Medications Sig/Jocelyn Start time Last Medication Dose Stop Time Status Admin Acetaminophen 1,000 MG Q6 12/21 2359 AC 12/22 (Ofirmev) 12/22 1801 0610 Docusate Sodium 100 MG DAILY NEEDED PRN 12/21 221 AC (Colace) Fluoxetine HCl 1,200 MG DAILY 12/22 1000 CAN (Prozac) Fluoxetine HCl 20 MG DAILY 12/22 1000 AC 12/22 (Prozac) 0949 Folic Acid 1 MG DAILY 12/22 1000 AC 12/22 (Folic Acid) 0949 Heparin Sodium 5,000 UNIT Q8 12/22 0600 AC 12/22 (Porcine) 0529 Hydromorphone HCl 2 MG Q4P PRN 12/21 2215 AC 12/22 (Dilaudid) 0528 Hydromorphone HCl 4 MG Q4P PRN 12/21 2214 AC 12/21 (Dilaudid) 2245 Morphine Sulfate 2 MG Q2P PRN 12/21 2214 AC (Morphine) Ofloxacin 0.1 ML DAILY 12/22 999 AC 12/22 0950 Ondansetron HCl 4 MG Q6P PRN 12/21 2214 AC (Zofran) Polyethylene Glycol 17 GM DAILY NEEDED PRN 12/21 2214 AC (Miralax) Tamsulosin HCl 0.4 MG DAILY 12/22 999 AC 12/22 (Flomax) 0950 Ursodiol 600 MG BID 12/21 2199 AC 12/22 (Actigall) 0951 Laboratory Tests 12/22/17 0844: Anion Gap 12, Estimated GFR > 60, BUN/Creatinine Ratio 17.3, CBC w Diff NO MAN DIFF REQ, RBC 3.39 L, MCV 88.8, MCH 29.2, MCHC 32.9 L, RDW 15.4 H, MPV 8.5, Gran % 54.6, Lymphocytes % 28.8, Monocytes % 13.7 H, Eosinophils % 2.4, Basophils % 0.5, Absolute Granulocytes 2.7, Absolute Lymphocytes 1.4, Absolute Monocytes 0.7 H, Absolute Eosinophils 0.1, Absolute Basophils 0 12/21/17 1547: Urine Color Cancelled, Urine Clarity Cancelled, Urine pH Cancelled, Ur Specific Zachary Cancelled, Urine Protein Cancelled, Urine Ketones Cancelled, Urine Nitrite Cancelled, Urine Bilirubin Cancelled, Urine Urobilinogen Cancelled, Ur Leukocyte Esterase Cancelled, Ur Microscopic Cancelled, Urine Hemoglobin Cancelled, Urine Glucose Cancelled 12/21/17 1313: Anion Gap 15, Estimated GFR 44 L, BUN/Creatinine Ratio 18.7, Glucose 103 H, Calcium 9.5, Phosphorus 2.8, Magnesium 2.0, Total Bilirubin 0.7, AST 26, ALT 19 L, Alkaline Phosphatase 87, Creatine Kinase 180 H, Xgw-[id number]-Ridvhxcobqn Pept 705 H, Total Protein 8.5 H, Albumin 4.5, Globulin 4.0, Albumin/Globulin Ratio 1.1, PT 11.7, INR 1.12, APTT 30, CBC w Diff NO MAN DIFF REQ, RBC 4.46 L, MCV 88.9, MCH 29.0, MCHC 32.7 L, RDW 15.3 H, MPV 8.3, Gran % 88.0 H, Lymphocytes % 6.1 L, Monocytes % 5.6, Eosinophils % 0.1, Basophils % 0.2, Absolute Granulocytes 10.5 H, Absolute Lymphocytes 0.7 L, Absolute Monocytes 0.7 H, Absolute Eosinophils 0, Absolute Basophils 0 Microbiology 12/21 1900 URINE ROUT: Urine Culture - RES Assessment/Plan Assessment: This is an 87 year old white male with a history of hypertension, pedal edema, anemia, prostate and bladder cancer, urinary incontinence, right iliac artery aneurysm repair, left ankle and acetabular fracture, and depression/anxiety presenting for hip pain after slipping on ice. Physical exam shows point tenderness in the left hip and an inability to raise leg. X-ray shows findings suspicious for intertrochanteric fracture of left proximal femur, although evaluation is limited due to degenerative changes. Of note in his labs, creatinine is 1.5, BUN is 28, creatine kinase is 180, BNP is 705, and total protein is 8.5. This is likely to be left intertrochanteric fracture and he will be admitted to general medicine after surgery. Plan: Left hip fracture: -Make NPO -Pain control with IV morphine -Will go to surgery tonight -IV fluids -Cardiology consult prior to surgery to clear him Hypertension: -Hold Lisinopril due to elevated kidney function labs Pedal Edema: -Hold Lasix for surgery Anxiety/depression: -Continue home medications
--- NOTE | 2017-12-22 10:44 | PN- Student ---
Subjective Subjective: Patient seen and examined this morning. Has been afebrile. Surgery has been in to see him. He states he has 5/10 pain in his leg but its not bad if he doesn't move it. He denies any other symptoms. He told the team last night that he had been having left ear pruritis and pus discharge for 2 days. He didn't mention that on admission. He was started on ofloxacin .1 ml drops daily. He denies any hearing loss or pain in the ear. He denies shortness of breath, chest pain, nausea, or vomiting. Will have a regular diet. His kennedy catheter was taken out by nursing. Objective Objective: Vital Signs Date Time Temp Pulse Resp B/P B/P Pulse O2 O2 Flow FiO2 Mean Ox Delivery Rate 12/22 1013 65 20 132/62 100 Room Air 12/22 0950 65 132/62 12/22 0827 97.7 60 20 112/80 98 Room Air 12/22 0300 97.5 59 20 94/62 98 Nasal 2.0L Cannula 12/22 0101 97.5 61 20 100/68 96 Nasal 2.0L Cannula 12/21 2305 98.2 63 20 116/52 97 Nasal Cannula 12/21 2118 97 Nasal 2.0L Cannula 12/21 2118 98.0 67 16 124/50 97 Nasal 2.0L Cannula 12/21 1544 97.2 66 15 156/71 96 Room Air 12/21 1543 97.2 66 15 156/71 96 Room Air 12/21 1444 Room Air Room Air 12/21 1443 96.5 68 15 159/71 95 Room Air Room Air 12/21 1205 96.7 67 15 150/72 96 Room Air Room Air Physical Exam: General: alert and oriented, cooperative Ears: no pain on palpation in external ear, whitish pus substance seen in middle ear Neck: no lymphadenopathy or thyromegaly, supple Lungs: clear to auscultation Cardiac: normal S1 and S2, no murmurs, rubs, or gallops Extremities: 1+ pedal edema, stasis dermatitis Results Results: Laboratory Tests 12/22/17 0844: Anion Gap 12, Estimated GFR > 60, BUN/Creatinine Ratio 17.3, CBC w Diff NO MAN DIFF REQ, RBC 3.39 L, MCV 88.8, MCH 29.2, MCHC 32.9 L, RDW 15.4 H, MPV 8.5, Gran % 54.6, Lymphocytes % 28.8, Monocytes % 13.7 H, Eosinophils % 2.4, Basophils % 0.5, Absolute Granulocytes 2.7, Absolute Lymphocytes 1.4, Absolute Monocytes 0.7 H, Absolute Eosinophils 0.1, Absolute Basophils 0 12/21/17 1547: Urine Color Cancelled, Urine Clarity Cancelled, Urine pH Cancelled, Ur Specific [place] Cancelled, Urine Protein Cancelled, Urine Ketones Cancelled, Urine Nitrite Cancelled, Urine Bilirubin Cancelled, Urine Urobilinogen Cancelled, Ur Leukocyte Esterase Cancelled, Ur Microscopic Cancelled, Urine Hemoglobin Cancelled, Urine Glucose Cancelled 12/21/17 1313: Anion Gap 15, Estimated GFR 44 L, BUN/Creatinine Ratio 18.7, Glucose 103 H, Calcium 9.5, Phosphorus 2.8, Magnesium 2.0, Total Bilirubin 0.7, AST 26, ALT 19 L, Alkaline Phosphatase 87, Creatine Kinase 180 H, Snz-M-Vuhrhnhlrdz Pept 705 H, Total Protein 8.5 H, Albumin 4.5, Globulin 4.0, Albumin/Globulin Ratio 1.1, PT 11.7, INR 1.12, APTT 30, CBC w Diff NO MAN DIFF REQ, RBC 4.46 L, MCV 88.9, MCH 29.0, MCHC 32.7 L, RDW 15.3 H, MPV 8.3, Gran % 88.0 H, Lymphocytes % 6.1 L, Monocytes % 5.6, Eosinophils % 0.1, Basophils % 0.2, Absolute Granulocytes 10.5 H, Absolute Lymphocytes 0.7 L, Absolute Monocytes 0.7 H, Absolute Eosinophils 0, Absolute Basophils 0 Microbiology 12/21 1900 URINE ROUT: Urine Culture - RES Current Medications Sig/Jocelyn Start time Last Medication Dose Route Stop Time Status Admin Acetaminophen 1,000 MG Q6 12/21 2359 AC 12/22 IV 12/22 1801 0610 Cefazolin Sodium 2 GM IQ8 12/22 0000 DC 12/22 N/A 1 UNIT IV 12/22 08 0817 Ciprofloxacin 4 GTT BID 12/22 0100 DC OTIC Docusate Sodium 100 MG DAILY NEEDED PRN 12/21 2215 AC PO Fentanyl Citrate 100 MCG .STK-MED ONE 12/21 1710 DC IM 12/21 1711 Fluoxetine HCl 1,200 MG DAILY 12/22 1000 CAN PO Fluoxetine HCl 20 MG DAILY 12/22 1000 AC 12/22 PO 0949 Folic Acid 1 MG DAILY 12/22 1000 AC 12/22 PO 0949 Heparin Sodium 5,000 UNIT Q8 12/22 0600 AC 12/22 (Porcine) SC 0529 Hydromorphone HCl 2 MG Q4P PRN 12/21 2215 AC 12/22 PO 0528 Hydromorphone HCl 4 MG Q4P PRN 12/21 2215 AC 12/21 PO 2245 Hydromorphone HCl 2 MG .STK-MED ONE 12/21 1941 DC IM 12/21 1942 Hydromorphone HCl 2 MG .STK-MED ONE 12/21 1710 DC IM 12/21 1711 Lactated Ringer's 1,000 ML Q13H 12/22 0100 DC 12/22 IV 0053 Morphine Sulfate 2 MG Q2P PRN 12/21 221 AC IV Morphine Sulfate 0 .STK-MED ONE 12/21 1625 DC .ROUTE Morphine Sulfate 4 MG ONCE ONE 12/21 1545 DC 12/21 IV 12/21 1546 1644 Morphine Sulfate 0 .STK-MED ONE 12/21 1221 DC .ROUTE Morphine Sulfate 4 MG ONCE ONE 12/21 1200 DC 12/21 IV 12/21 1201 1317 Ofloxacin 0.1 ML DAILY 12/22 1000 AC 12/22 OTIC 0950 Ofloxacin 0.1 ML DAILY 12/22 0115 DC OTIC 12/29 0114 Ondansetron HCl 4 MG Q6P PRN 12/21 2215 AC IV Polyethylene Glycol 17 GM DAILY NEEDED PRN 12/21 2215 AC PO Potassium Chloride 40 MEQ ONCE ONE 12/22 1015 DC PO 12/22 1016 Tamsulosin HCl 0.4 MG DAILY 12/22 1000 AC 12/22 PO 0950 Ursodiol 600 MG BID 12/21 2200 AC 12/22 PO 0951 Microbiology Date/Time Procedure - Status Source Growth 12/21 190 Urine Culture - RES URINE ROUT Assessment/Plan Assessment: This is an 87 year old white male with a history of hypertension, pedal edema, anemia, prostate and bladder cancer, urinary incontinence, right iliac artery aneurysm repair, left ankle and acetabular fracture, and depression/anxiety presenting for hip pain after slipping on ice. Physical exam shows point tenderness in the left hip and an inability to raise leg. X-ray shows findings suspicious for intertrochanteric fracture of left proximal femur, although evaluation is limited due to degenerative changes. Of note in his labs, creatinine is 1.5, BUN is 28, creatine kinase is 180, BNP is 705, and total protein is 8.5. Admitted to general medicine after ORIF left hip surgery. Plan: Left hip fracture: -s/p ORIF left intertrochanteric surgery -Pain control PRN -Regular diet -Follow orthopedic recommendations Left ear infection: -Possibly due to otitis media, otitis externa is unlikely -Ofloxacin .1 ml daily Hypertension: -Hold Lisinopril due to elevated kidney function labs Pedal Edema: -Hold Lasix for surgery Anxiety/depression: -Continue home medications -Dressing change tomorrow by surgical team
--- NOTE | 2017-12-22 13:28 | Admission Certification ---
Admission Certification Certification Statement - As attending physician, I certify that at the time of - admission, based on clinical presentation, severity of - symptoms, need for further diagnostic testing and - therapeutic interventions, and risk of adverse outcomes - without in-hospital treatment, in my clinical assessment, - this patient requires an acute hospital stay for a minimum - of two nights or longer. I have also considered psychsocial - factors such as support system, advanced age, financial - issues, cognitive issues, and failed out-patient treatments, - past re-admission history, safety of patient, and lack of - compliance as applicable. Specific rationale supporting this admission is: Fall with hip fracture
--- NOTE | 2017-12-22 14:11 | Discharge Summary ---
Visit Information Visit Dates Admission Date: 12/21/17 Discharge Date: 12/25/17 Hospital Course Course Attending Physician: Venu Groves MD Primary Care Physician: Bruno Arriaga MD Hospital Course: 87-year-old male with extensive PMH who presented to the ED with left hip pain after mechanical fall. The patient was taking out the garbage when he slipped over ice and landed on his left side. The ED confirmed left-sided intratrochanteric femur fracture. Surgery recommended surgical intervention, they discuss it with patient who agreed on surgery. The patient denies any palpitation, dizziness, chest pain, or vertigo prior to the fall. He denies loss of consciousness, tongue biting, or head trauma. The patient was taken for open reduction and internal fixation with gamma nail, pain was controlled as needed with morphine. Surgery recommended weightbearing as tolerated post surgery. The patient will be discharged for short-term rehabilitation. Patient was initially placed on heparin subcutaneous for DVT prophylaxis, he will be discharged on eliquis2.5 mg BID for DVT prophylaxis. On admission creatinine was found to be 1.5, baseline is normal creatinine. Lisinopril was held prior to surgery and during the first day post surgery given her mild hypotension. On the second day post surgery creatinine was back to normal. BP continue to be in the lower border of normal, we will hold lisinopril and furosemide on discharged. On admission patient reported left ear itching and discharges. He was diagnosed with left otitis externa and was started on ofloxacin ear drops. He will be instructed to follow with primary care doctor post discharge. Allergies: Coded Allergies: phenytoin (UNKNOWN 02/08/16) tetracycline (UNKNOWN 02/08/16) Disposition Summary Disposition Principal Diagnosis: Left intratrochanteric femur neck fracture Additional Diagnosis: Left ear infection Discharge Disposition: SNF (short-term) Discharge Instructions General Discharge Information Code Status: Full Code Patient's Diet: Heart healthy as tolerated Patient's Activity: Weight bearing as tolerated Follow-Up Instructions/Appts: Please follow-up with primary care doctor within 1-2 weeks Please follow-up with surgery as an outpatient Medications at Discharge Discharge Medications: Stop taking the following medications: Furosemide (Furosemide) 20 MG TABLET ORAL TWICE DAILY Qty = 60 Furosemide (Lasix) 20 MG TABLET ORAL TWICE DAILY Lisinopril (Prinivil) 10 MG TABLET ORAL DAILY Qty = 30 Continue taking these medications: Mirtazapine (Mirtazapine) 30 MG TABLET 1 Tablet ORAL Every night Qty = 30 Ursodiol (Ursodiol) 300 MG CAPSULE 2 Capsule ORAL TWICE DAILY Qty = 120 Tamsulosin HCl (Tamsulosin HCl) 0.4 MG CAP.ER.24H 1 Capsule ORAL TAKE AT BEDTIME Qty = 30 Clonazepam (Clonazepam) 0.5 MG TABLET 1 Tablet ORAL TWICE DAILY Qty = 60 Ferrous Sulfate (Ferrous Sulfate) 325 MG (65 MG IRON) TABLET 1 Tablet ORAL THREE TIMES DAILY Qty = 90 Folic Acid (Folic Acid) 1 MG TABLET 1 Tablet ORAL DAILY Qty = 30 Fluoxetine HCl (Fluoxetine HCl) 20 MG CAPSULE 60 Capsule ORAL DAILY Start taking the following new medications: Polyethylene Glycol 3350 (Miralax) 17 GRAM/DOSE POWDER 17 Gram ORAL DAILY NEEDED as needed for No BM in two days Qty = 1 No Refills Ofloxacin (Ofloxacin) 0.3 % DROPS 0.1 Milliliters OTIC DAILY Qty = 1 No Refills Apixaban (Eliquis) 2.5 MG TABLET 1 Tablet ORAL TWICE DAILY Qty = 30 No Refills Oxycodone HCl/Acetaminophen (Percocet 10-325 MG Tablet) 10 MG-325 MG TABLET 1 Tablet ORAL 4 TIMES A DAY as needed for Severe pain Qty = 20 No Refills Copies To: Bart RICHTER,Bruno Laird
[2017-12-22] MEDS ORDERED: PERCOCET 10-321 EACH PO (14:53)
[2017-12-22] MEDS ORDERED: ELIQUIS2.5 M1 PO (14:53)
--- NOTE | 2017-12-22 14:59 | Patient Discharge Instructions ---
See Addendum Discharge Instructions General Discharge Information You were seen/treated for: Left hip fracture status post ORIF Watch for these problems: Pain in left hip, swelling of the left leg, change in color of left leg, discharge from the surgical wound site, short of breath and chest pain. If you experience any of these symptoms please come to ED or call to her primary care physician. Special Instructions: Follow up with her primary care physician in one week. Follow-up with orthopedic surgery in 1 week. Please discuss about the duration of anticoagulation. Lasix has been discontinued considering his recent renal injury and patient start taking oral fluids much. He was taking Lasix for pedal edema but now there is no pedal edema. Diet Recommended Diet: Regular Activity Activity Self Limited: Yes Acute Coronary Syndrome Inclusion Criteria At DC or during hospital stay patient has or had the following: ACS DIAGNOSIS No Discharge Core Measures Meds if any: Prescribed or Continued at Discharge Meds if any: NOT Prescribed or Continued at Discharge Congestive Heart Failure Inclusion Criteria At DC or during hospital stay patient has or had the following: CHF DIAGNOSIS No Discharge Core Measures Meds if any: Prescribed or Continued at Discharge Meds if any: NOT Prescribed or Continued at Discharge Cerebrovascular accident Inclusion Criteria At DC or during hospital stay patient has or had the following: CVA/TIA Diagnosis No Discharge Core Measures Meds if any: Prescribed or Continued at Discharge Meds if any: NOT Prescribed or Continued at Discharge Venous thromboembolism Inclusion Criteria VTE Diagnosis No VTE Type NONE VTE Confirmed by (Test) NONE Discharge Core Measures - Per Current guidelines, there needs to be overlap - treatment for the first 5 days of Warfarin therapy. - If discharged on Warfarin prior to 5 days of - overlap therapy, the patient will need to be - assessed for post discharge needs including - *Post discharge parental anticoagulation - *Warfarin and/or parental anticoagulation education - *Follow up date to check INR post discharge At least 5 days overlap therapy as Inpatient No Meds if any: Prescribed or Continued at Discharge Note: Overlap Therapy is Warfarin and Anticoagulant Meds if any: NOT Prescribed or Continued at Discharge
[2017-12-22] MEDS ORDERED: MIRALAX119 GM PO (15:06)
[2017-12-22] MEDS ORDERED: PRINIVIL10 M1 PO (15:07)
[2017-12-22] MEDS ORDERED: OFLOXACIN5 M1 OTIC (15:11)
--- NOTE | 2017-12-22 16:11 | PN- Cardiology ---
Subjective Subjective: No complaints. Pain controlled on present regimen. Objective Vital Signs and I&Os Vital Signs Date Time Temp Pulse Resp B/P B/P Pulse O2 O2 Flow FiO2 Mean Ox Delivery Rate 12/22 1438 98.7 65 20 108/64 97 Room Air 12/22 1350 Room Air 2.0L 12/22 1013 65 20 132/62 100 Room Air 12/22 0950 65 132/62 12/22 0927 97.7 60 20 112/80 98 Room Air 12/22 0800 100 Nasal 2.0L Cannula 12/22 0300 97.5 59 20 94/62 98 Nasal 2.0L Cannula 12/22 0101 97.5 61 20 100/68 96 Nasal 2.0L Cannula 12/21 2305 98.2 63 20 116/52 97 Nasal Cannula 12/21 2117 97 Nasal 2.0L Cannula 12/21 2117 98.0 67 16 124/50 97 Nasal 2.0L Cannula Intake & Output 12/22 1600 12/22 0800 12/22 0000 12/21 1600 12/21 0000 Intake Total 660 800 300 0 Output Total 300 Balance 660 500 300 0 Intake, IV 420 700 200 Intake, Oral 240 100 100 0 Number 0 Bowel Movements Output, Urine 300 Patient 160 lb 165 lb Weight Weight Reported by Patient Reported by Patient Measurement Method Physical Exam: Well-developed, well-nourished elderly male in no acute distress. Vital signs: See above. Neck: No JVD, Lungs: Clear to auscultation bilaterally. Heart: S1, S2 with no murmur, gallop, or rub appreciated. Spine abdomen: Soft, nontender, positive bowel sounds. Extremities: No edema. Assessment/Plan Assessment/Plan [id number]-[id number]/ m w/ hx HTN & dysrhythmias who presented to the ED following a fall during which he sustained a left sided intertrochanteric fracture of the femur and who is POD #1 following ORIF w/ gamma nail. Hemodynamically stable and no complaints of chest discomfort, palpitations, shortness of breath, etc. Replete potassium and follow-up H/H. DVT prophylaxis. Continue telemetry? Not applicable (On Gen Med.)
[2017-12-23 06:21] VITALS: BP 122/68
--- NOTE | 2017-12-23 08:57 | PN- Orthopedic ---
See Addendum Subjective Subjective: POD #2 S/P ORIF LEFT HIP FRACTURE NO MAJOR ISSUES OVERNIGHT DENIES CP, SOB, NO N+V WITH DIET DOES C/O DIZZINESS IN BED AND DID NOT GET UP WITH PT THIS AM Objective Vital Signs and I&Os Vital Signs Date Time Temp Pulse Resp B/P B/P Pulse O2 O2 Flow FiO2 Mean Ox Delivery Rate 12/23 620 98.2 75 18 122/68 94 Room Air 12/22 2158 98.5 68 20 120/60 93 Room Air 12/22 1800 98.1 70 20 110/60 95 Room Air 12/22 1438 98.7 65 20 108/64 97 Room Air 12/22 1350 Room Air 2.0L 12/22 1013 65 20 132/62 100 Room Air 12/22 0950 65 132/62 12/22 0927 97.7 60 20 112/80 98 Room Air Intake & Output 12/23 1600 12/23 0800 12/23 0000 12/22 1600 12/22 0800 12/22 0000 Intake Total 800 100 660 800 300 Output Total 875 750 300 Balance -75 -650 660 500 300 Intake, IV 420 700 200 Intake, Oral 800 100 240 100 100 Number 0 Bowel Movements Output, Urine 875 750 300 Patient 160 lb Weight Weight Reported by Patient Measurement Method Physical Exam: CV: RRR LUNGS: CLEAR ABD: SOFT, +BS EXT: DRSG CHANGED, WOUND C/D/I MILD CLYDE INCISIONAL ERYTHEMA NO CALF TENDERNESS BILAT Assessment/Plan Assessment/Plan ORTHO STABLE PLAN F/U AM LABS TRANSFUSE TO KEEP HGB ABOVE 8.0 OOB WITH PT LATER TODAY WILL NEED SNF UPON D/C DVT PROPHYLAXIS PER MEDICAL TEAM
--- NOTE | 2017-12-23 09:23 | PN- Housestaff ---
Indra RICHTER,Jero 12/23/17 0923: Subjective Follow-up For: left femur fracture s/p ORIF Subjective: pain is controlled, pod 2, OOB to chair today tolerating PO, no other complaints Review of Systems Constitutional: Reports: see HPI. Objective Last 24 Hrs of Vital Signs/I&O Vital Signs Date Time Temp Pulse Resp B/P B/P Pulse O2 O2 Flow FiO2 Mean Ox Delivery Rate 12/23 1540 98.1 73 20 110/60 93 12/23 1003 75 122/68 12/23 0621 98.2 75 18 122/68 94 Room Air 12/22 2158 98.5 68 20 120/60 93 Room Air 12/22 1800 98.1 70 20 110/60 95 Room Air Intake & Output 12/23 1600 12/23 0800 12/23 0000 Intake Total 360 800 100 Output Total 500 875 750 Balance -140 -75 -650 Intake, Oral 360 800 100 Number 0 Bowel Movements Output, Urine 500 875 750 Physical Exam General Appearance: Alert, Oriented X3, Cooperative, No Acute Distress Cardiovascular: Regular Rate, Normal S1, Normal S2, No Murmurs Lungs: Clear to Auscultation, Normal Air Movement Abdomen: Normal Bowel Sounds, Soft, No Tenderness, No Masses Extremities: No Clubbing, No Cyanosis, No Edema, Normal Pulses, Left hip dressing c/d/i Current Medications: Current Medications Sig/Jocelyn Start time Last Medication Dose Route Stop Time Status Admin Acetaminophen 650 MG Q4P PRN 12/23 1000 AC 12/23 PO 1003 Acetaminophen 1,000 MG Q6 12/21 2359 DC 12/22 IV 12/22 1801 1750 Clonazepam 0.5 MG ONCE ONE 12/23 1000 DC 12/23 PO 12/23 1001 1002 Docusate Sodium 100 MG DAILY NEEDED PRN 12/21 2215 AC 12/23 PO 1450 Fluoxetine HCl 20 MG DAILY 12/22 1000 AC 12/23 PO 1002 Folic Acid 1 MG DAILY 12/22 1000 AC 12/23 PO 1004 Heparin Sodium 5,000 UNIT Q8 12/22 0600 AC 12/23 (Porcine) SC 1450 Hydromorphone HCl 2 MG Q4P PRN 12/21 2215 AC 12/23 PO 0529 Hydromorphone HCl 4 MG Q4P PRN 12/21 2215 AC 12/22 PO 2142 Morphine Sulfate 2 MG Q2P PRN 12/21 2214 AC 12/23 IV 0042 Ofloxacin 0.1 ML DAILY 12/22 1000 AC 12/23 OTIC 1004 Ondansetron HCl 4 MG Q6P PRN 12/21 2214 AC IV Polyethylene Glycol 17 GM DAILY NEEDED PRN 12/21 2214 AC PO Potassium Chloride 20 MEQ ONCE ONE 12/22 1630 DC 12/22 PO 12/22 1631 1750 Tamsulosin HCl 0.4 MG DAILY 12/22 999 AC 12/23 PO 1003 Ursodiol 600 MG BID 12/21 2199 AC 12/23 PO 1004 Last 24 Hrs of Lab/Judson Results Last 24 Hrs of Labs/Mics: Laboratory Tests 12/23/17 0810: Anion Gap 7, Estimated GFR > 60, BUN/Creatinine Ratio 15.5, CBC w Diff NO MAN DIFF REQ, RBC 3.33 L, MCV 88.5, MCH 29.2, MCHC 33.0, RDW 15.5 H, MPV 8.3, Gran % 65.7, Lymphocytes % 20.6, Monocytes % 10.3 H, Eosinophils % 2.9, Basophils % 0.5, Absolute Granulocytes 4.7, Absolute Lymphocytes 1.5, Absolute Monocytes 0.7 H, Absolute Eosinophils 0.2, Absolute Basophils 0 Assessment/Plan Assessment: 87 YO M with PMH of HTN, prostate CA s/p external beam radiation plus radium implant (2003), bladder cancer status post transurethral resection (2014), choledocholithiasis status post ERCP with sphincterotomy with extraction (2014), anxiety, depression, right iliac artery aneurysm repair, left by Yady fracture s/p ORIF and iron deficiency anemia brought to ED with chief complaint of left hip pain after a mechanical fall. patient is being followed on general medicine floor for the treatment of left hip fracture. Left hip fracture s/p ORIF: -Post op day 2 -Continue current analgesics -Orthopedic recommendations. -eliquis 2.5mg bid started Acute kidney injury: -Creatinine improved from 1.5 to 1.1 -Resume lisinopril on discharge -Continue to monitor BEP daily -Continue ursodiol Left ear infection: -Possible otitis externa. -Antibiotic ear drops -Outpatient ENT folow up History of hypertension: -blood pressure 110-120 systolic -can restart lasix and lisinopril if becomes hypertensive History of anxiety and depression: -Continue his home medications. History of difficulty in urination: -Continue Flomax DVT prophylaxis: d/c subq heparin on eliquis CODE STATUS: Full code. Problem List: 1. Intertrochanteric fracture of left femur 2. Fall Pain Ratin Pain Location: left hip Pain Goal: Pain 4 or less Pain Plan: prn Tomorrow's Labs & Rationales: cbc bep Venu Groves MD 12/23/17 1217: Attending MD Review Statement Attending Statement Attending MD Statement: examined this patient, discuss w/resident/PA/PUBLIC POLICY PROFESSOR, agreed w/resident/PA/PUBLIC POLICY PROFESSOR, reviewed EMR data (avail) Attending Assessment/Plan: 87M PMH HTN, prostate CA s/p external beam radiation plus radium implant (2003), bladder cancer status post transurethral resection with mechanical fall and left intertrochanteric hip fracture s/p repair on 12/21, doing well post-operatively with pain controlled. Also with left ear pain with discharge overnight, started on Ofloxacin drops. 1. Fall 2. Left closed intertrochanteric hip fracture 3. Left otitis externa Plan - Stable for discharge to [facility] if participating with PT and bed available - Continue home medications - Start Eliquis - Follow orthopedic recommendations - Continue Ofloxacin drops - Physical therapy
[2017-12-23 09:34] LABS: ABSOLUTE BASOPHIL COUNT 0 /CUMM (0.0-0.2); ABSOLUTE EOSINOPHIL COUNT 0.2 /CUMM (0.0-0.7); ABSOLUTE GRANULOCYTE CT 4.7 /CUMM (1.4-6.5); ABSOLUTE LYMPH COUNT 1.5 /CUMM (1.2-3.4); ABSOLUTE MONOCYTE COUNT 0.7 /CUMM (0.10-0.60); BASOPHIL % 0.5 % (0.0-2.0); EOSINOPHIL % 2.9 % (0-5); GRANULOCYTE % 65.7 % (42.2-75.2); HEMATOCRIT 29.5 % (42-52); MEAN CORPUSCULAR HGB 29.2 PG (27.0-31.0); MEAN CORPUSCULAR VOLUME 88.5 FL (80.0-94.0); MEAN PLATELET VOLUME 8.3 FL (7.4-10.4); PLATELET COUNT 180 /CUMM (130-400); RBC DISTRIBUTION WIDTH 15.5 % (11.5-14.5); RED BLOOD CELL CT 3.33 /CUMM (4.70-6.10); WHITE BLOOD CELL COUNT 7.1 /CUMM (4.8-10.8)
[2017-12-23 15:40] VITALS: BP 110/60
[2017-12-23 22:44] VITALS: BP 124/62
[2017-12-24 06:20] VITALS: BP 124/58
--- NOTE | 2017-12-24 08:33 | PN- Housestaff ---
See Addendum Subjective Follow-up For: Left femur fracture Subjective: patient is complaining of some constipation, has some left hip pain after getting off the bedpain patient is having urinary retention and getting straight cathed every 4-6 hours OOB to chair yesterday Review of Systems Constitutional: Reports: see HPI. Objective Last 24 Hrs of Vital Signs/I&O Vital Signs Date Time Temp Pulse Resp B/P B/P Pulse O2 O2 Flow FiO2 Mean Ox Delivery Rate 12/24 0620 98.3 63 20 124/58 96 Room Air 12/23 2244 98.8 79 19 124/62 96 Room Air 12/23 1540 98.1 73 20 110/60 93 12/23 1003 75 122/68 Intake & Output 12/24 1600 12/24 0800 12/24 0000 Intake Total 240 500 Output Total 250 625 Balance -10 -125 Intake, Oral 240 500 Output, Urine 250 625 Physical Exam General Appearance: Alert, Oriented X3, Cooperative, No Acute Distress Cardiovascular: Regular Rate, Normal S1, Normal S2, No Murmurs Lungs: Clear to Auscultation, Normal Air Movement Abdomen: Normal Bowel Sounds, Soft, No Tenderness, No Masses Extremities: No Clubbing, No Cyanosis, No Edema, No Tenderness/Swelling, Left hip dressing c/d/i Current Medications: Current Medications Sig/Jocelyn Start time Last Medication Dose Route Stop Time Status Admin Acetaminophen 650 MG Q4P PRN 12/23 1000 AC 12/23 PO 1003 Apixaban 2.5 MG BID 12/23 2200 AC 12/23 PO 2111 Bisacodyl 5 MG DAILY 12/24 1000 AC PO Bisacodyl 10 MG DAILY PRN 12/24 0830 AC VT Clonazepam 0.5 MG ONCE ONE 12/23 1000 DC 12/23 PO 12/23 1001 1002 Docusate Sodium 100 MG .STK-MED ONE 12/23 1445 DC PO 12/23 1446 Docusate Sodium 100 MG DAILY NEEDED PRN 12/21 2215 AC 12/23 PO 1450 Fluoxetine HCl 20 MG DAILY 12/22 1000 AC 12/23 PO 1002 Folic Acid 1 MG DAILY 12/22 1000 AC 12/23 PO 1004 Heparin Sodium 5,000 UNIT Q8 12/22 0600 DC 12/23 (Porcine) SC 1450 Hydromorphone HCl 2 MG Q4P PRN 12/21 2214 AC 12/23 PO 2110 Hydromorphone HCl 4 MG Q4P PRN 12/21 2214 AC 12/22 PO 2141 Morphine Sulfate 2 MG Q2P PRN 12/21 2214 AC 12/23 IV 222 Ofloxacin 0.1 ML DAILY 12/22 999 AC 12/23 OTIC 1004 Ondansetron HCl 4 MG Q6P PRN 12/21 2214 AC IV Polyethylene Glycol 17 GM DAILY NEEDED PRN 12/21 2214 AC 12/23 PO 2110 Senna/Docusate Sodium 2 TAB DAILY 12/24 999 AC PO Tamsulosin HCl 0.4 MG DAILY 12/22 999 AC 12/23 PO 1002 Ursodiol 600 MG BID 12/21 2199 AC 12/23 PO 2111 Last 24 Hrs of Lab/Judson Results Last 24 Hrs of Labs/Mics: Laboratory Tests 12/24/17 0710: Sodium Pending, Potassium Pending, Chloride Pending, Carbon Dioxide Pending, Anion Gap Pending, BUN Pending, Creatinine Pending, BUN/Creatinine Ratio Pending , CBC w Diff Pending, WBC Pending, RBC Pending, Hgb Pending, Hct Pending, MCV Pending, MCH Pending, MCHC Pending, RDW Pending, Plt Count Pending, MPV Pending Assessment/Plan Assessment: 87 YO M with PMH of HTN, prostate CA s/p external beam radiation plus radium implant (2003), bladder cancer status post transurethral resection (2014), choledocholithiasis status post ERCP with sphincterotomy with extraction (2014), anxiety, depression, right iliac artery aneurysm repair, left by Yady fracture s/p ORIF and iron deficiency anemia brought to ED with chief complaint of left hip pain after a mechanical fall. patient is being followed on general medicine floor for the treatment of left hip fracture. Left hip fracture s/p ORIF: -Post op day 3 -Continue current analgesics with PO dilaudid prn -Bowel regimen -Follow up orthopedic recommendations -eliquis 2.5mg bid started -Awaiting STR placement Acute kidney injury: -Creatinine improved from 1.5 to 1.1 -Resume lisinopril on discharge -Continue to monitor BEP daily -Continue ursodiol Left ear infection: -Possible otitis externa. -Antibiotic ear drops -Outpatient ENT folow up History of hypertension: -blood pressure 110-120 systolic -can restart lasix and lisinopril if becomes hypertensive History of anxiety and depression: -Continue his home medications. History of difficulty in urination: -Continue Flomax DVT prophylaxis: d/c subq heparin on eliquis CODE STATUS: Full code. Problem List: 1. Fall 2. Intertrochanteric fracture of left femur Pain Ratin Pain Location: left hip Pain Goal: Pain 4 or less Pain Plan: prn Tomorrow's Labs & Rationales: none
[2017-12-24 08:34] LABS: ABSOLUTE BASOPHIL COUNT 0 /CUMM (0.0-0.2); ABSOLUTE EOSINOPHIL COUNT 0.3 /CUMM (0.0-0.7); ABSOLUTE GRANULOCYTE CT 3.5 /CUMM (1.4-6.5); ABSOLUTE LYMPH COUNT 1.3 /CUMM (1.2-3.4); ABSOLUTE MONOCYTE COUNT 0.7 /CUMM (0.10-0.60); BASOPHIL % 0.6 % (0.0-2.0); EOSINOPHIL % 5.9 % (0-5); GRANULOCYTE % 59.8 % (42.2-75.2); HEMATOCRIT 27.3 % (42-52); MEAN CORPUSCULAR HGB 29.1 PG (27.0-31.0); MEAN CORPUSCULAR HGB CONC 32.8 G/DL (33.0-37.0); MEAN CORPUSCULAR VOLUME 88.8 FL (80.0-94.0); MEAN PLATELET VOLUME 8.2 FL (7.4-10.4); PLATELET COUNT 176 /CUMM (130-400); RBC DISTRIBUTION WIDTH 15.5 % (11.5-14.5); RED BLOOD CELL CT 3.07 /CUMM (4.70-6.10); WHITE BLOOD CELL COUNT 5.8 /CUMM (4.8-10.8)
--- NOTE | 2017-12-24 10:04 | PN- Orthopedic ---
Subjective Subjective: No acute overnight events reported. Pt has been able to get OOB to chair, is tolerating weighbearing on operative leg. Denies chest pain, shortness of breath and difficulty breathing. Mckeon catheter has been removed. Pt has been experiencing difficulty voiding. Has been straight cathed. Personal goal is to void spontaneously. Expressed interest in STR placement at [facility]. Objective Vital Signs and I&Os Vital Signs Date Time Temp Pulse Resp B/P B/P Pulse O2 O2 Flow FiO2 Mean Ox Delivery Rate 12/24 0620 98.3 63 20 124/58 96 Room Air 12/23 2244 98.8 79 19 124/62 96 Room Air 12/23 1540 98.1 73 20 110/60 93 12/23 1003 75 122/68 Intake & Output 12/24 1600 12/24 0800 12/24 0000 12/23 1600 12/23 0800 12/23 0000 Intake Total 240 500 360 800 100 Output Total 250 625 500 875 750 Balance -10 -125 -140 -75 -650 Intake, Oral 240 500 360 800 100 Number 0 Bowel Movements Output, Urine 250 625 500 875 750 Physical Exam: General: Alert and oriented x3, no acute distress Cardiac: RRR, s1s2 Pulm: CTA bilaterally ABD: Non-tender, non-distended Extremities: Moves all extremities, distal sensation intact. Skin warm and well perfused. No shortening or rotational deformity to left lower extremity. Dressing dry and intact. Thigh compartment soft. distal pulses palpable. Bilateral calves soft and non-tender. Assessment/Plan Assessment/Plan This is an 87 year old male, POD 3, s/p gamma nail for intertrochanteric fracture. -Continue current dvt ppx for 6 weeks post op -Activity: Can wbat on operative leg -Dressing: Daily dry dressing changes -Amos: To be DC'd no earlier than POD 14 -Dispo planning: Pt wishes to go to [facility] for STR placement -Continue primary team as medicine, surgical team will remain available for further consultation on an as needed basis.
[2017-12-24 14:48] VITALS: BP 140/70
[2017-12-24 23:19] VITALS: BP 114/60
[2017-12-25 06:20] VITALS: BP 122/54
--- NOTE | 2017-12-25 07:13 | PN- Housestaff ---
[facility] Subjective Follow-up For: Left hip fracture S/P left hip ORIF Left ear infection. Urine retension Subjective: No overnight events. Patient remained afebrile blood. Seen and examined this morning. Patient denied any chest pain, short of breath, nausea, vomiting, chills, fever, abdominal pain dysuria. Patient reported having pain in left hip under control with pain medication. Pain increases on movement and becomes 5/ 10. Patient had bowel movement last night. Patient is tolerating food. Possible discharge to rehabilitation facility if bed is available. Patient is complaining of urine retension and may need urology to see him. Patient may need kennedy's catheter and he can leave with it. Review of Systems Constitutional: Reports: no symptoms. EENTM: Reports: no symptoms. Cardiovascular: Reports: no symptoms. Respiratory: Reports: no symptoms. Gastrointestinal: Reports: no symptoms. Genitourinary: Reports: no symptoms. Musculoskeletal: Reports: see HPI. Neurological/Psychological: Reports: no symptoms. Objective Last 24 Hrs of Vital Signs/I&O Vital Signs Date Time Temp Pulse Resp B/P B/P Pulse O2 O2 Flow FiO2 Mean Ox Delivery Rate 12/25 0832 70 122/54 12/25 0620 98.7 70 20 122/54 94 Room Air 12/24 2319 98.6 86 20 114/60 93 Room Air 12/24 1448 98.1 77 20 140/70 93 Intake & Output 12/25 1600 12/25 0800 12/25 0000 Intake Total 900 100 Output Total 900 Balance 0 100 Intake, Oral 900 100 Number 1 Bowel Movements Output, Urine 900 Physical Exam General Appearance: Alert, Oriented X3, Cooperative Skin Temp/Moisture Exam: Warm/Dry Sepsis Skin Exam (color): Normal for Ethnicity HEENT: Atraumatic, PERRLA, EOMI Neck: Supple Cardiovascular: Normal S1, Normal S2 Lungs: Clear to Auscultation Abdomen: Soft, No Tenderness Neurological: Normal Speech, Normal Tone Extremities: No Edema Assessment/Plan Assessment: 87 YO M with PMH of HTN, prostate CA s/p external beam radiation plus radium implant (2003), bladder cancer status post transurethral resection (2014), choledocholithiasis status post ERCP with sphincterotomy with extraction (2014), anxiety, depression, right iliac artery aneurysm repair, left by Yady fracture s/p ORIF and iron deficiency anemia brought to ED with chief complaint of left hip pain after a mechanical fall. patient is being followed on general medicine floor for the treatment of left hip fracture. Left hip fracture s/p ORIF: -Post op day 4 -Continue current analgesics with PO dilaudid prn -Bowel regimen. -Continue physiotherapy. -continue eliquis 2.5mg bid -Awaiting STR placement -Follow up orthopedic recommendations Acute kidney injury: -Creatinine improved from 1.5 to 1.1 -Resume lisinopril on discharge -Continue to monitor BEP daily -Continue ursodiol Left ear infection: -Possible otitis externa. -Antibiotic ear drops -Outpatient ENT folow up Urine retension: -Patient is using flowmax and complaining of urine retension afte rthe surgery. -May need floey's catheter. -Urology consult was placed, we will follow recommendations. History of hypertension: -Blood pressure 110-120 systolic -Can restart lasix and lisinopril if becomes hypertensive History of anxiety and depression: -Continue his home medications. History of difficulty in urination: -Continue Flomax DVT prophylaxis: Mechanical and patient is on eliquis CODE STATUS: Full code. Problem List: 1. Intertrochanteric fracture of left femur 2. Fall Pain Ratin Pain Location: left hip Pain Goal: Pain 4 or less Pain Plan: pain pathway Tomorrow's Labs & Rationales: none Venu Groves MD 12/25/17 1219: Attending MD Review Statement Attending Statement Attending MD Statement: examined this patient, discuss w/resident/PA/PUBLIC TRANSIT BUS DRIVER, agreed w/resident/PA/PUBLIC TRANSIT BUS DRIVER, reviewed EMR data (avail) Attending Assessment/Plan: 87M PMH HTN, prostate CA s/p external beam radiation plus radium implant (2003), bladder cancer status post transurethral resection with mechanical fall and left intertrochanteric hip fracture s/p repair on 12/21, doing well post-operatively with pain controlled. Also with left ear pain with discharge overnight, started on Ofloxacin drops. Today having urinary retention, requiring straight cath q6h returngin 500mL fluid, has a history of episodic self-straight catheterization. 1. Fall 2. Left closed intertrochanteric hip fracture 3. Left otitis externa 4. Acute urinary retention Plan - Stable for discharge to STR if participating with PT and bed available and if able to urinate - Urology consult - Continue home medications - Continue Eliquis - Follow orthopedic recommendations - Continue Ofloxacin drops - Physical therapy
[2017-12-25 08:59] LABS: ABSOLUTE BASOPHIL COUNT 0 /CUMM (0.0-0.2); ABSOLUTE EOSINOPHIL COUNT 0.3 /CUMM (0.0-0.7); ABSOLUTE GRANULOCYTE CT 5.9 /CUMM (1.4-6.5); ABSOLUTE LYMPH COUNT 1.5 /CUMM (1.2-3.4); ABSOLUTE MONOCYTE COUNT 0.8 /CUMM (0.10-0.60); BASOPHIL % 0.4 % (0.0-2.0); EOSINOPHIL % 3.6 % (0-5); GRANULOCYTE % 69.1 % (42.2-75.2); HEMATOCRIT 27.3 % (42-52); MEAN CORPUSCULAR HGB 29.5 PG (27.0-31.0); MEAN CORPUSCULAR HGB CONC 33.5 G/DL (33.0-37.0); MEAN PLATELET VOLUME 8.2 FL (7.4-10.4); PLATELET COUNT 214 /CUMM (130-400); RBC DISTRIBUTION WIDTH 15.6 % (11.5-14.5); WHITE BLOOD CELL COUNT 8.6 /CUMM (4.8-10.8)
[2017-12-25 13:52] VITALS: BP 140/80
[2017-12-25 22:15] VITALS: BP 106/50
[2017-12-26 05:59] VITALS: BP 112/50
--- NOTE | 2017-12-26 07:18 | PN- Housestaff ---
Subjective Follow-up For: hip fracture, otitis externa Subjective: ADOLFO. Patient feels well this morning. Ear and hip doing well. He reports frequent urinations yesterday without dysuria. No CP, SOB, or other issues. Review of Systems Constitutional: Reports: no symptoms. EENTM: Reports: see HPI. Cardiovascular: Reports: no symptoms. Respiratory: Reports: no symptoms. Gastrointestinal: Reports: no symptoms. Genitourinary: Reports: see HPI. Musculoskeletal: Reports: see HPI. Skin: Reports: no symptoms. Neurological/Psychological: Reports: no symptoms. Hematologic/Endocrine: Reports: no symptoms. Immunologic/Allergic: Reports: no symptoms. Objective Last 24 Hrs of Vital Signs/I&O Vital Signs Date Time Temp Pulse Resp B/P B/P Pulse O2 O2 Flow FiO2 Mean Ox Delivery Rate 12/26 0559 98.0 62 20 112/50 92 Room Air 12/25 2215 98.7 72 20 106/50 92 Room Air 12/25 1352 98.0 81 20 140/80 94 Room Air 12/25 0832 70 122/54 Intake & Output 12/26 0800 12/26 0000 12/25 1600 Intake Total 480 Output Total 450 600 Balance -450 -120 Intake, Oral 480 Number 1 Bowel Movements Output, Urine 450 600 Physical Exam General Appearance: Alert, Oriented X3, Cooperative, No Acute Distress Skin: No Rashes Cardiovascular: Regular Rate, Normal S1, Normal S2 Lungs: Clear to Auscultation Abdomen: Normal Bowel Sounds, Soft, No Tenderness Neurological: Normal Speech Extremities: No Edema, Normal Pulses, No Tenderness/Swelling Current Medications: Current Medications Sig/Jocelyn Start time Last Medication Dose Route Stop Time Status Admin Acetaminophen 650 MG Q4P PRN 12/23 1000 AC 12/23 PO 1003 Apixaban 2.5 MG BID 12/23 2200 AC 12/25 PO 1830 Bisacodyl 5 MG DAILY 12/24 1000 AC 12/25 PO 0833 Bisacodyl 10 MG DAILY PRN 12/24 0830 AC 12/24 NC 2006 Clonazepam 0.5 MG BID 12/25 1323 AC 12/25 PO 01/01 1322 1831 Docusate Sodium 100 MG DAILY NEEDED PRN 12/21 2215 AC 12/24 PO 0930 Fluoxetine HCl 20 MG DAILY 12/22 1000 AC 12/25 PO 0832 Folic Acid 1 MG DAILY 12/22 1000 AC 12/25 PO 0832 Hydromorphone HCl 2 MG Q4P PRN 12/21 2214 AC 12/26 PO 0435 Hydromorphone HCl 4 MG Q4P PRN 12/21 221 AC 12/25 PO 0647 Morphine Sulfate 2 MG Q2P PRN 12/21 221 AC 12/23 IV 2222 Ofloxacin 0.1 ML DAILY 12/22 1000 AC 12/25 OTIC 0833 Ondansetron HCl 4 MG Q6P PRN 12/21 2214 AC IV Polyethylene Glycol 17 GM DAILY NEEDED PRN 12/21 221 AC 12/23 PO 2111 Senna/Docusate Sodium 2 TAB DAILY 12/24 1000 AC 12/24 PO 0931 Tamsulosin HCl 0.4 MG DAILY 12/22 999 AC 12/25 PO 0832 Ursodiol 600 MG BID 12/21 2199 AC 12/25 PO 1830 Last 24 Hrs of Lab/Judson Results Last 24 Hrs of Labs/Mics: Laboratory Tests 12/25/17 0805: CBC w Diff NO MAN DIFF REQ, RBC 3.10 L, MCV 88.0, MCH 29.5, MCHC 33.5, RDW 15.6 H, MPV 8.2, Gran % 69.1, Lymphocytes % 17.5 L, Monocytes % 9.4 H, Eosinophils % 3.6, Basophils % 0.4, Absolute Granulocytes 5.9, Absolute Lymphocytes 1.5, Absolute Monocytes 0.8 H, Absolute Eosinophils 0.3, Absolute Basophils 0 Assessment/Plan Assessment: 87 YO M with PMH of HTN, prostate CA s/p external beam radiation plus radium implant (2003), bladder cancer status post transurethral resection (2014), choledocholithiasis status post ERCP with sphincterotomy with extraction (2014), anxiety, depression, right iliac artery aneurysm repair, left by Yady fracture s/p ORIF and iron deficiency anemia brought to ED with chief complaint of left hip pain after a mechanical fall. Problem list: 1. Intertrochanteric fracture of the left proximal femur status post ORIF 2. Acute kidney injury 3. Urinary retention 4. Otitis externa #Intertrochanteric fracture of the left proximal femur status post ORIF: Patient is postop day 5. -Continue pain regimen -Bowel regimen. -Continue physiotherapy. -Follow up orthopedic recommendations -He will be going to [facility] #Acute kidney injury: Resolved. -Resume lisinopril on discharge -Continue ursodiol #Otitis externa, left: Ear pain has resolved. -Continue ofloxacin -Outpatient ENT folow up #Urinary retention: Patient was retaining urine but yesterday had 1.9 L output. Urology was consulted but did not come. -Continue finasteride -Appreciate urology recommendations: discharge with kennedy #Chronic medical problems: -Continue home medications DVT prophylaxis with apixiban Regular diet Full code Problem List: 1. Intertrochanteric fracture of left femur Pain Ratin Pain Location: no pain Pain Goal: Remain pain free Pain Plan: see a/p Tomorrow's Labs & Rationales: none
[2017-12-26] MEDS ORDERED: FINASTERIDE5 M1 PO (10:52)
[2017-12-26 11:18] VITALS: BP 112/60
--- NOTE | 2017-12-26 17:54 | Cons- Urology ---
General Information and HPI Consulting Request Date of Consult: 12/26/17 Requested By: Venu Groves MD Reason for Consult: URINARY RETENTION Source of Information: patient, old records Exam Limitations: no limitations History of Present Illness: This is an 87-year-old gentleman, status post hip surgery, with postoperative urinary retention. The patient states that he's had difficulty with weak stream , and urinary frequency for years. Postoperatively, his BPH symptoms have worsened with urinary retention, requiring intermittent catheterization. The patient is to be discharged to rehabilitation facility soon. Allergies/Medications Allergies: Coded Allergies: phenytoin (UNKNOWN 02/08/16) tetracycline (UNKNOWN 02/08/16) Home Med List: Apixaban (Eliquis) 2.5 MG TABLET 1 TAB PO BID Blood thinner Clonazepam 0.5 MG TABLET 1 TAB PO BID ANXIETY (Reported) Ferrous Sulfate 325 MG (65 MG IRON) TABLET 1 TAB PO TID SUPPLEMENT (Reported) Finasteride 5 MG TABLET 5 MG PO DAILY URINE RETENTION Fluoxetine HCl 20 MG CAPSULE 60 CAP PO DAILY MENTAL HEALTH (Reported) Folic Acid 1 MG TABLET 1 TAB PO DAILY SUPPLEMENT (Reported) Mirtazapine 30 MG TABLET 1 TAB PO QPM UNKNOWN (Reported) Ofloxacin 0.3 % DROPS 0.1 ML OTIC DAILY Ear infection Oxycodone HCl/Acetaminophen (Percocet 10-325 MG Tablet) 10 MG-325 MG TABLET 1 TAB PO 4 TIMES/DAY PRN Severe pain Polyethylene Glycol 3350 (Miralax) 17 GRAM/DOSE POWDER 17 GM PO DAILY NEEDED PRN No BM in two days Tamsulosin HCl 0.4 MG CAP.ER.24H 1 CAP PO QHS (Reported) Ursodiol 300 MG CAPSULE 2 CAP PO BID UNKNOWN (Reported) Current Medications: Current Medications Sig/Jocelyn Start time Last Medication Dose Route Stop Time Status Admin Acetaminophen 650 MG .STK-MED ONE 12/26 0859 DC PO 12/26 0900 Acetaminophen 650 MG Q4P PRN 12/23 1000 DCD 12/26 PO 0902 Apixaban 2.5 MG BID 12/23 2200 DCD 12/26 PO 0900 Bisacodyl 5 MG DAILY 12/24 1000 DCD 12/26 PO 0900 Bisacodyl 10 MG DAILY PRN 12/24 0830 DCD 12/24 DC 2006 Clonazepam 0.5 MG BID 12/25 1323 DCD 12/26 PO 01/01 1322 0900 Docusate Sodium 100 MG DAILY NEEDED PRN 12/21 2215 DCD 12/24 PO 0930 Finasteride 5 MG DAILY 12/26 1000 DCD 12/26 PO 0959 Fluoxetine HCl 20 MG DAILY 12/22 1000 DCD 12/26 PO 0900 Folic Acid 1 MG DAILY 12/22 1000 DCD 12/26 PO 0900 Hydromorphone HCl 2 MG Q4P PRN 12/21 2215 DCD 12/26 PO 0435 Hydromorphone HCl 4 MG Q4P PRN 12/21 2215 DCD 12/25 PO 0647 Morphine Sulfate 2 MG Q2P PRN 12/21 2215 DCD 12/23 IV 2222 Ofloxacin 0.1 ML DAILY 12/22 1000 DCD 12/26 OTIC 0900 Ondansetron HCl 4 MG Q6P PRN 12/21 221 DCD IV Polyethylene Glycol 17 GM DAILY NEEDED PRN 12/21 2215 DCD 12/23 PO 2111 Senna/Docusate Sodium 2 TAB DAILY 12/24 1000 DCD 12/24 PO 0931 Tamsulosin HCl 0.4 MG DAILY 12/22 1000 DCD 12/26 PO 0900 Ursodiol 600 MG BID 12/21 2200 DCD 12/26 PO 0900 Past History Medical History Blood Transfusion Hx: No Neurological: NONE EENT: NONE Cardiovascular: hypertension Respiratory: NONE Gastrointestinal: NONE Hepatic: NONE Renal: NONE Musculoskeletal: L COMPRESSION HIP FRX L LEG FRX Psychiatric: anxiety, depression Endocrine: NONE Blood Disorders: NONE Cancer(s): BLADDER S/P TRANSURETHRAL RESECTION 2014 PROSTATE CA S/P EXTERNAL BEAM RADIATION PLUS RADIUM TRANSPLANT 2004 SUPPORT SERVICES SPECIALIST/Reproductive: NONE Surgical History Pertinent Surgical History: non-contributory Psychosocial History Where Do You Live? Home Who Do You Live With? spouse, child Services at Home: NONE Smoking Status: Never Smoked ETOH Use: denies use Illicit Drug Use: denies illicit drug use Functional Ability Ambulation: independent (ambulating prior to fall today) Employment History Retired? yes Review of Systems Review of Systems Constitutional: Reports: see HPI, weakness. EENTM: Denies: no symptoms. Cardiovascular: Denies: no symptoms. Respiratory: Denies: no symptoms. GI: Reports: abdominal pain, bloating. Genitourinary: Reports: see HPI. Musculoskeletal: Reports: see HPI. Skin: Denies: no symptoms. Exam & Diagnostic Data Vital Signs and I&O Vital Signs Date Time Temp Pulse Resp B/P B/P Pulse O2 O2 Flow FiO2 Mean Ox Delivery Rate 12/26 1118 98.0 62 20 112/60 12/26 0900 62 112/60 12/26 0559 98.0 62 20 112/50 92 Room Air 12/25 2215 98.7 72 20 106/50 92 Room Air Intake & Output 12/26 1600 12/26 0800 12/26 0000 12/25 1600 12/25 0800 12/25 0000 Intake Total 200 480 900 100 Output Total 800 450 600 900 Balance -600 -450 -120 0 100 Intake, Oral 200 480 900 100 Number 1 1 Bowel Movements Output, Urine 800 450 600 900 Patient 160 lb Weight Physical Exam General Appearance: well developed/nourished Head: atraumatic Respiratory: normal breath sounds Cardiovascular: regular rate/rhythm Gastrointestinal: normal bowel sounds, soft, non-tender Rectal: normal exam Back: no vertebral tenderness Reproductive: Normal male genitalia Other Physical Findings: LARGE PROSTATE ON DESIREE Assessment/Plan Assessment/Plan Patient with long-term BPH, now exacerbated postoperatively. Plans for the patient to start Proscar 5 mg by mouth daily. Additionally Crowell catheter should be inserted in order to reliably drain his bladder until he has completed his physical therapy, and will be able to see me in the office for voiding trial. Copies To: Jaskaran Trejo MD Consult Acknowledgment - Thank you for your consult request. Attending MD Review Statement Attending Statement Attending MD Statement: examined this patient, discuss w/resident/PA/DOOR ASSEMBLER Attending Assessment/Plan: [facility]: START PROSCAR 5MG/DAY. F/U OUTPATIENT FOR CYSTOSCOPY/ VOIDING TRIAL WHEN OUT OF REHAB.
== END 2017-12-26 13:36 | DRG 481 ==
LOC: ERH 11:52 → ERHI 14:44 → 2NA 14:44 → ENRESERV 17:05 → 2NA 17:06 → ENTRNSPT 20:19 → EDTRNSPT 20:25 → EDTRNSPTSTS 20:25 → CMPTRNSPT 20:40 → ENPENDDIS 12-26 11:03 → 2NA 12-26 13:36
PROVIDERS: Physician Assistant; Student in an Organized Health Care Education/Training Program
PROC: 0QS706Z Reposition Left Upper Femur with Intramedullary Internal Fixation Device, Open Approach (ICD-10-PCS; principal; 2017-12-21)
DX: S72.142A Displaced intertrochanteric fracture of left femur, initial encounter for closed fracture (principal); N17.9 Acute kidney failure, unspecified; I45.10 Unspecified right bundle-branch block; I45.2 Bifascicular block; M87.9 Osteonecrosis, unspecified; Y93.01 Activity, walking, marching and hiking; Y92.019 Unspecified place in single-family (private) house as the place of occurrence of the external cause; W00.0XXA Fall on same level due to ice and snow, initial encounter; I10 Essential (primary) hypertension; R33.8 Other retention of urine; E78.5 Hyperlipidemia, unspecified; Z85.51 Personal history of malignant neoplasm of bladder; F32.9 Major depressive disorder, single episode, unspecified; F41.9 Anxiety disorder, unspecified; I87.2 Venous insufficiency (chronic) (peripheral); Z85.46 Personal history of malignant neoplasm of prostate; H60.92 Unspecified otitis externa, left ear; E87.6 Hypokalemia; M16.12 Unilateral primary osteoarthritis, left hip
CPT/HCPCS: 2NASP; 36415; 71046; 72170; 73502-LT; 73552; 73590-LT; 73610-LT; 82436; 87086; 93005; 93010; 96374; 97110-GO; 97116-GO; 97161-GP; 97530-GO; 99291; J0131; J0690; J1644; J3490; J7120